=== PATIENT | female | born 1965 | race Caucasian/White ===

== ENCOUNTER 2018-06-07 13:55 | Observation (INO) | payer BC, SELFPAY ==
[2018-06-07] VITALS (9 sets, daily range): BP systolic 108–125; BP diastolic 58–70; PULSE 56–78; RESP 15–18; TEMP 36.5–36.7; O2SAT 95–99; BMI 26.4; BMI 25.8
[2018-06-07] MEDS: Aspirin 81 MG TAB.CHEW 324 MG PO (14:09)
[2018-06-07 14:20] LABS: Absolute Lymphocyte Count 1.76 X10^3/ul (0.83-4.51); Absolute Neutrophil Count 2.6 X10^3/uL (2.0-7.7); Basophil# 0.06 X10^3/uL; Basophil% 1.2 % (0-1); Eosinophils% 4.1 % (0-5); Hematocrit 34.9 % (37-47); Hemoglobin 11.8 g/dl (12.0-15.0); Lymphocyte # 1.76 X10^3/ul (4.0); Lymphocyte % 35.9 % (19-41); Mean Corp Hgb Conc 33.8 g/gl (32-36); Mean Corpuscular Hgb 29.9 pg (27.0-32.0); Mean Corpuscular Volume 88.4 fL (81-99); Mean Platelet Vol. 10.8 fl (6.2-12.0); Monocyte# 0.24 X10^3/uL; Monocyte% 4.9 % (0-10); Neutrophil # 2.64 X10^3/uL (2.7-7.7); Neutrophil % 53.9 % (47-70); Platelet Count 263 K/mm3 (150-450); RBC Distribution Width CV 12.6 % (11.6-14.6); RBC Distribution Width SD 40.5 fl (35.1-43.9); Red Blood Count 3.95 M/mm3 (4.2-5.4); White Blood Count 4.9 K/mm3 (4.4-11.0)
[2018-06-07 14:32] LABS: Anion Gap 8 (5-15); BUN 13 mg/dL (7-18); BUN/Creat Ratio 17.1 RATIO (10-20); Calcium,Total 8.9 mg/dL (8.5-10.1); Chloride 110 mmol/L (98-107); Creatinine, Serum 0.76 mg/dL (0.55-1.02); EST Glomerular Filtration Rate 84 mL/min (>60); Est Glom Filt Rate - Afr Amer 102 mL/min (>60); Estimated Creatinine Clearance 74.77 ml/min; Glucose 118 mg/dL (74-106); Potassium 3.9 mmol/L (3.5-5.1); Sodium Level 142 mmol/L (136-145)
[2018-06-07 14:34] LABS: POSITIVE COUNT NO; POSITIVE DIFFERENTIAL NO; POSITIVE MORPHOLOGY NO
--- NOTE | 2018-06-07 15:14 | ED.VISSUMM ---
- ER Visit Summary Date of Service: 06/07/18 Chief Complaint: Chest pain History of Present Illness: The patient is a 52 F presenting for evaluation secondary chest pain. Patient reports that today she was at rest and she had a sudden onset of substernal chest pain. She states that initially was a stabbing feeling in her back, now as a heaviness in her chest. Patient states that it was associated with diaphoresis and shortness of breath. Patient states that does not have any sort of exacerbating relieving factors. About a week and a half ago she had a similar presentation that she brushed off. Patient is a non-smoker, but has a family history of premature cardiac disease. No diabetes hypertension high cholesterol or smoking. She denies any DVT or PE risk factors. She denies any dissection or aneurysm risk factors. Physical Examination: Vital signs are within normal limits, patient is afebrile. General: Patient is well-nourished well-developed and in no acute distress. Head: Normocephalic, atraumatic Eyes: Pupils equal round and reactive bilaterally, extra occular motion intact bialterally ENT: Moist mucous membranes Neck: Supple, no lymphadenopathy, no JVD, no meningismus CVS: Heart regular rate and rhythm, no murmurs, rubs or gallops, radial pulses 2+ bilaterally Resp: Respirations nondistressed, lung sounds clear bilaterally Abdomen: Soft, nontender, nondistended, no palpable masses, normal bowel sounds Back: Nontender Extremities: Nontender, atraumatic, active full range of motion, no peripheral edema Skin: warm, no rashes, no petechia Neuro: Alert and oriented x 4, CN 2-12 intact, no lateralizing neurological defecits Psyc: Normal affect Test Results: Sinus rhythm [address] segments normal T waves. CBC chemistry troponin unremarkable. PA and lateral chest x-ray shows no evidence of mediastinal widening, normal cardiac size, no evidence of acute cardio pulmonary pathology. Emergency Department Course and Treatment: Patient presented for evaluation secondary chest pain. Workup was found to be negative as noted above. Patient was given aspirin and a single nitroglycerin and had resolution of her pain. Patient's heart score is a 4 making her moderate risk of believe she requires admission I discussed this with hospitalist Disposition: Admission Impression: 1. Chest pain This note was generated with cottonTracksation software. It may contain incorrect words, spelling, and punctuation that were not noted in review of the chart prior to signing ED Disposition - Plan for ED Patient: Disposition: Acute Care Hospital [facility] Chief Complaint: Chest Pain
--- NOTE | 2018-06-07 15:18 | ED.DCSUM_ITS ---
- ER Visit Summary Date of Service: 06/07/18 Chief Complaint: Chest pain History of Present Illness: The patient is a 52 F presenting for evaluation secondary chest pain. Patient reports that today she was at rest and she had a sudden onset of substernal chest pain. She states that initially was a stabbing feeling in her back, now as a heaviness in her chest. Patient states that it was associated with diaphoresis and shortness of breath. Patient states that does not have any sort of exacerbating relieving factors. About a week and a half ago she had a similar presentation that she brushed off. Patient is a non-smoker, but has a family history of premature cardiac disease. No diabetes hypertension high cholesterol or smoking. She denies any DVT or PE risk factors. She denies any dissection or aneurysm risk factors. Physical Examination: Vital signs are within normal limits, patient is afebrile. General: Patient is well-nourished well-developed and in no acute distress. Head: Normocephalic, atraumatic Eyes: Pupils equal round and reactive bilaterally, extra occular motion intact bialterally ENT: Moist mucous membranes Neck: Supple, no lymphadenopathy, no JVD, no meningismus CVS: Heart regular rate and rhythm, no murmurs, rubs or gallops, radial pulses 2 + bilaterally Resp: Respirations nondistressed, lung sounds clear bilaterally Abdomen: Soft, nontender, nondistended, no palpable masses, normal bowel sounds Back: Nontender Extremities: Nontender, atraumatic, active full range of motion, no peripheral edema Skin: warm, no rashes, no petechia Neuro: Alert and oriented x 4, CN 2-12 intact, no lateralizing neurological defecits Psyc: Normal affect Test Results: Sinus rhythm [address] segments normal T waves. CBC chemistry troponin unremarkable. PA and lateral chest x-ray shows no evidence of mediastinal widening, normal cardiac size, no evidence of acute cardio pulmonary pathology. Emergency Department Course and Treatment: Patient presented for evaluation secondary chest pain. Workup was found to be negative as noted above. Patient was given aspirin and a single nitroglycerin and had resolution of her pain. Patient's heart score is a 4 making her moderate risk of believe she requires admission I discussed this with hospitalist Disposition: Admission Impression: 1. Chest pain This note was generated with RIGIDation software. It may contain incorrect words, spelling, and punctuation that were not noted in review of the chart prior to signing ED Disposition - Plan for ED Patient: Disposition: Acute Care Hospital [facility] Chief Complaint: Chest Pain
--- NOTE | 2018-06-07 15:35 | PCM.HP.STD ---
Problem List (1) GERD (gastroesophageal reflux disease) Status: Chronic (2) History of bilateral breast implants Status: Chronic Comment: Z98.82 (3) Personal history of breast cancer Status: Chronic Comment: Z85.3 personal history of left breast cancer History of Present Illness Date of Admission: 06/07/18 Chief Complaint: Chest pain. The patient is a 52 year old F with past medical history as mentioned above presented to the medicine because of chest pain. Her symptoms started around 2 hours before she arrived to the ER with chest pain, started when she was sitting, started in the upper back, went to the anterior chest on the middle, pressure-like pain, 6 out of 10 in severity, not radiating, associated with shortness of breath and sweating, aggravated by movement and relieved with nitroglycerin after she arrived to the emergency room. She mentioned that she had similar episode of chest pain around 1 week ago. At this time, she feels better after she received nitroglycerin. In the emergency department, her vital signs are stable. Routine blood work was unremarkable. EKG revealed normal sinus rhythm without evidence of acute ischemic changes. Troponin is negative. Chest x-ray showed no acute findings. She is being admitted for chest pain for evaluation. 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) Z90.13 Family history of breast cancer (Chronic) Z80.3 Personal history of breast cancer (Chronic) Z85.3 personal history of left breast cancer Allergies minocycline Allergy (Severe, Verified 06/07/18 13:56) Shortness of breath Sulfa (Sulfonamide Antibiotics) Allergy (Severe, Verified 06/07/18 13:56) Anaphylaxis oxaprozin [From Daypro] Adverse Reaction (Intermediate, Verified 06/07/18 13:56) Diarrhea tamoxifen [Tamoxifen] Adverse Reaction (Intermediate, Verified 06/07/18 13:56) Nausea/Vom/Diarrhea venlafaxine Adverse Reaction (Intermediate, Verified 06/07/18 13:56) Nausea adhesive Adverse Reaction (Mild, Verified 06/07/18 13:56) Rash latex Adverse Reaction (Mild, Verified 06/07/18 13:56) Rash acetaminophen [From Vicodin] Adverse Reaction (Verified 06/07/18 13:56) Nausea/Vom/Diarrhea hydrocodone [From Vicodin] Adverse Reaction (Verified 06/07/18 13:56) Nausea/Vom/Diarrhea Tide Laundry Detergent Allergy (Severe, Uncoded 06/07/18 13:56) Rash Home Medications: Ambulatory Orders Medication Instructions Recorded Omeprazole [Prilosec] 10 mg PO Q4H PRN PRN 04/29/17 Surgical History: hysterectomy, - - Bilateral mastectomy, breast implants. 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 Denies: Edema, Heaviness, Light Headedness, Orthopnea, Paroxysmal Noc. Dyspnea, Syncope Respiratory: Reports: Shortness of Breath. Denies: Cough, Hemoptysis, Pleuritic Pain, Sputum production, Wheezing Gastrointestinal: Denies: Abdominal Pain, Constipation, Diarrhea, Nausea, Vomiting Genitourinary: Denies: Dysuria, Frequency, Hematuria Musculoskeletal: Denies: Arm Pain, Back Pain, Foot Pain Skin: Denies: Dryness, Rash Neurological: Denies: Balance problems, Double vision, Change in Speech, Slurred speech, Confusion, Headaches, Incoordination, Numbness Psychiatric: Denies: Anxiety, Depression Endocrine: Denies: Change in Body Habitus, Polydipsia VTE Information - Inpt Only VTE Present on Admission: No VTE Mechan Device Prophylaxis: None VTE Pharm Prophylaxis ordered?: No - Physical Exam General: Alert, Oriented x3, Cooperative, No apparent distress HEENT: Atraumatic, PERRLA, EOMI, Normocephalic Oral: Moist Mucosa, No Gingival or Mucosal Lesions/ Ulcerations Neck: Supple, No JVD, Negative Carotid Bruits, Trachea Midline, Thyroid Normal Size and Texture Lungs: Clear to auscultation, Normal air movement, No rhonchi, No wheeze, No rales Cardiovascular: Regular rate, Regular Rhythm, Normal S1, Normal S2, No murmurs Abdomen: Bowel Sounds Present, Soft, Non Tender, Non-Distended, No Hepato-splenomegaly Extremities: No clubbing, No cyanosis, No edema Skin: No rashes, No breakdown Lymphatic: No Cervical, Supraclavicular, or Inguinal Adenopathy Neurological: Cranial nerves II-XII grossly intact, Motor Exam 5/5 strength throughout Psych/Mental Status: Normal Affect, Appropriate, Alert and oriented to time, place, person, mood and affect Vital Signs Temp Pulse Resp BP Pulse Ox 97.7 F L 78 18 108/67 95 06/07/18 13:56 06/07/18 15:06 06/07/18 15:06 06/07/18 15:06 06/07/18 15:06 Oxygen Flow Rate (L/min) 2 Oxygen Delivery Method Nasal Cannula Weight: 154 lb 5.177 oz Body Mass Index (BMI) 26.4 Laboratory Tests Past 24 Hrs 06/07/18 06/07/18 14:00 14:00 WBC 4.9 RBC 3.95 L Hgb 11.8 L Hct 34.9 L MCV 88.4 MCH 29.9 MCHC 33.8 RDW 12.6 RDW Differential 40.5 Plt Count 263 MPV 10.8 Immature Gran % (Auto) 0.000 Neut % (Auto) 53.9 Lymph % (Auto) 35.9 Quay % (Auto) 4.9 Eos % (Auto) 4.1 Baso % (Auto) 1.2 H Absolute Neuts (auto) 2.6 Absolute Lymphs (auto) 1.76 Total Counted Not Reportable Sodium 142 Potassium 3.9 Chloride 110 H Carbon Dioxide 24.0 Anion Gap 8 BUN 13 Creatinine 0.76 Estim Creat Clear Calc 74.77 Est GFR (MDRD) Af Amer 102 Est GFR (MDRD) Non-Af 84 BUN/Creatinine Ratio 17.1 Glucose 118 H Calcium 8.9 Troponin I < 0.015 Clinical Impression(s) from Imaging Studies Chest X-Ray 06/07/18 14:03 IMPRESSION: Normal x-ray examination of the chest. Electronically Signed: Choco GaoDO shara at 14:24 EDT Tel , Service support , Assessment/Plan This is a 52 years old female patient presented to the emergency room because of chest pain and she is being admitted for evaluation. #1 chest pain: According to patient's description, it is atypical chest pain. Risk factors are age and significant premature family history of CAD. She mentioned that her mother at age 62 and she had her first heart attack in her 40s. Her EKG reveals no acute ischemic changes. First troponin is negative. Chest x-ray showed no acute findings. Vital signs are stable. She is not hypoxic or tachycardic. Plan: Admit to ICU for observation, cardiac monitoring, serial cardiac enzymes, sublingual nitro glycerin as needed for pain, IV Zofran as needed, nuclear stress test if cardiac enzymes are negative, start Protonix as below. #2 history of breast cancer: Status post bilateral mastectomy and tamoxifen therapy, status post reconstructive surgery and breast implants. Patient completed 5 years of tamoxifen therapy and she has been in remission. Stable. #3 GERD: Start Protonix. Patient has been on omeprazole just as needed at home. #4 DVT prophylaxis: Low risk patient, no prophylaxis indicated. This note was generated with SpinVoxation software. It may contain incorrect words, spelling, and punctuation that were not noted in checking the note before signing. Code Visit OBSV E&M: 46366 Initial observation care L3
[2018-06-08] VITALS (9 sets, daily range): BP systolic 106–118; BP diastolic 60–69; PULSE 59–91; RESP 15–18; TEMP 36.6–36.8; O2SAT 96–98
[2018-06-08 07:27] LABS: Cholesterol 187 mg/dL (200); High Density Lipoprotein 52 mg/dL; Triglycerides 108 mg/dL; Very Low Density Lipoprotein 22 mg/dL (5-40)
--- NOTE | 2018-06-08 08:34 | PCM.PROGNOTE ---
Subjective: Chief complaint: Follow-up after admission for chest pain for evaluation. Patient seen and examined. No acute events overnight. Today, she has no more chest pain and denies shortness of breath. Her vital signs are stable. - Physical Exam General: Alert, Oriented x3, Cooperative, No apparent distress HEENT: Atraumatic, PERRLA, EOMI, Normocephalic Oral: Moist Mucosa, No Gingival or Mucosal Lesions/ Ulcerations Neck: Supple, No JVD, Negative Carotid Bruits, Trachea Midline, Thyroid Normal Size and Texture Lungs: Clear to auscultation, Normal air movement, No rhonchi, No wheeze, No rales Cardiovascular: Regular rate, Regular Rhythm, Normal S1, Normal S2, No murmurs Abdomen: Bowel Sounds Present, Soft, Non Tender, Non-Distended, No Hepato-splenomegaly Extremities: No clubbing, No cyanosis, No edema Skin: No rashes, No breakdown Lymphatic: No Cervical, Supraclavicular, or Inguinal Adenopathy Neurological: Cranial nerves II-XII grossly intact, Motor Exam 5/5 strength throughout Psych/Mental Status: Normal Affect, Appropriate, Alert and oriented to time, place, person, mood and affect Vital Signs Temp Pulse Resp BP Pulse Ox 98.3 F 63 15 114/60 98 06/08/18 04:15 06/08/18 04:15 06/08/18 04:15 06/08/18 04:15 06/08/18 04:15 Oxygen Delivery Method Room Air Weight: 150 lb 9.211 oz Body Mass Index (BMI) 25.8 Intake and Output for Last 24 Hours 06/06/18 06/07/18 06/08/18 23:59 23:59 23:59 Intake Total 240 / 240 720 / 720 Balance 240 / 240 720 / 720 Laboratory Tests Past 24 Hrs 06/07/18 06/07/18 06/08/18 17:20 20:10 05:55 Troponin I < 0.015 < 0.015 Triglycerides 108 Cholesterol 187 LDL Cholesterol 113 VLDL Cholesterol 22 HDL Cholesterol 52 Medical Necessity - Tobacco Use Smoking Status: Never smoker Assessment/Plan This is a 52 years old female patient presented to the emergency room because of chest pain and she is being admitted for evaluation. #1 chest pain:, She has no more chest pain, denies shortness of breath. Repeat EKG revealed sinus bradycardia, no acute ischemic changes. Troponin is negative ?3. Her vital signs are stable. Lipid profile revealed total cholesterol of 187, LDL cholesterol of 115 and HDL cholesterol 52. Plan for stress test tomorrow morning. #2 history of breast cancer: Status post bilateral mastectomy and tamoxifen therapy, status post reconstructive surgery and breast implants. Patient completed 5 years of tamoxifen therapy and she has been in remission. Stable. #3 GERD: Continue Protonix. Patient has been on omeprazole just as needed at home. #4 DVT prophylaxis: Low risk patient, no prophylaxis indicated. This note was generated with [employer] dictation software. It may contain incorrect words, spelling, and punctuation that were not noted in checking the note before signing. Code Visit OBSV E&M: 04644 Subsequent observation care L2
[2018-06-08] MEDS: Pantoprazole Sodium 40 MG Tablet PO (09:33)
[2018-06-08] MEDS: Aspirin E.C. 81 MG Tablet PO (09:34)
[2018-06-09] VITALS (7 sets, daily range): BP systolic 110–123; BP diastolic 58–65; PULSE 57–78; RESP 15–16; TEMP 36.6–36.9; O2SAT 96–98
[2018-06-09 05:25] LABS: Hematocrit 34.2 % (37-47); Hemoglobin 11.7 g/dl (12.0-15.0); Mean Corp Hgb Conc 34.2 g/gl (32-36); Mean Corpuscular Hgb 30.7 pg (27.0-32.0); Mean Corpuscular Volume 89.8 fL (81-99); Mean Platelet Vol. 11.2 fl (6.2-12.0); Platelet Count 238 K/mm3 (150-450); RBC Distribution Width CV 12.4 % (11.6-14.6); RBC Distribution Width SD 39.8 fl (35.1-43.9); Red Blood Count 3.81 M/mm3 (4.2-5.4); White Blood Count 5.5 K/mm3 (4.4-11.0)
[2018-06-09 05:48] LABS: Anion Gap 11 (5-15); BUN 18 mg/dL (7-18); Calcium,Total 9.2 mg/dL (8.5-10.1); Chloride 108 mmol/L (98-107); Creatinine, Serum 0.69 mg/dL (0.55-1.02); EST Glomerular Filtration Rate 94 mL/min (>60); Est Glom Filt Rate - Afr Amer 114 mL/min (>60); Estimated Creatinine Clearance 82.36 ml/min; Glucose 93 mg/dL (74-106); Potassium 4.2 mmol/L (3.5-5.1); Sodium Level 143 mmol/L (136-145)
[2018-06-09 05:52] LABS: Prothrombin Time (Protime)PT. 13.4 SECONDS (11.7-14.9)
[2018-06-09 05:53] LABS: Partial Thromboplast Time 29.2 Seconds (24.1-36.2)
[2018-06-09 05:58] LABS: Scan Indicated on CBC? Y/N NO
--- NOTE | 2018-06-09 09:07 | STRESSREP ---
Stress Test Report Exercise myocardial perfusion stress test. 52-year-old lady with a history of chest pain. Stress protocol: Resting EKG demonstrates normal sinus rhythm with a rate of 63 bpm normal intervals and noted resting blood pressure is 112/60 mmHg. The patient exercised according to regular Davon protocol for total duration of 7 minutes. The maximum heart rate attained was 164 bpm which was 97% of maximum predicted heart rate the maximum workload was 8.5 metabolic equivalents. The patient maintained sinus rhythm throughout the recording. At rest there were no ST or T-wave changes noted suggest ischemia peak exercise upsloping ST changes were noted with no meet the criteria for ischemia. No clinical angina was noted the test was terminated due to leg fatigue. The resting blood pressure is 112/60 mmHg with a peak blood pressure 152/76 mmHg rate pressure product was 22,800. Myocardial perfusion protocol. 11.2 mCi of technetium 99m sestamibi was injected at rest. The patient exercised according to regular Davon protocol for total duration of 7 minutes. At peak exercise 32.9 mCi of technetium 99m sestamibi was injected stress images were obtained stress and rest images were reconstructed and compared in the short axis vertical long and horizontal long axis. Gated images were also obtained pre- Perfusion SPECT analysis: Review of the stress images demonstrate normal uptake of tracer noted in all areas of the myocardium. The resting images similarly demonstrate normal uptake of tracer noted in all areas of the myocardium. No areas of reversibility are noted suggest ischemia and no previous infarct is noted. Gated SPECT analysis: The gated ejection fraction is noted to be 86%. Conclusion: Exercise myocardial perfusion stress test with no evidence of ischemia noted at a moderate workload. Good functional capacity. Preserved ejection fraction.
[2018-06-09] MEDS: Aspirin E.C. 81 MG Tablet PO (09:39)
[2018-06-09] MEDS: Pantoprazole Sodium 40 MG Tablet PO (09:39)
--- NOTE | 2018-06-09 13:23 | PCM.DC ---
- Discharge Diagnoses Current Active Problems: Current Active and Chronic Problems GERD (gastroesophageal reflux disease) (Chronic) You will use the following diet at home:: Regular Your food should be the consistency of: Regular Your liquids should be the consistency of: Regular/Thin Discharge Activity: Return to Normal Activity Call your doctor if you observe: Shortness of breath, Dizziness, Fainting spells, Chest pain, Increased palpitations (irregular heartbeat) Allergies/Adverse Reactions: Allergies minocycline Allergy (Severe, Verified 06/07/18 13:56) Shortness of breath Sulfa (Sulfonamide Antibiotics) Allergy (Severe, Verified 06/07/18 13:56) Anaphylaxis oxaprozin [From Daypro] Adverse Reaction (Intermediate, Verified 06/07/18 13:56) Diarrhea tamoxifen [Tamoxifen] Adverse Reaction (Intermediate, Verified 06/07/18 13:56) Nausea/Vom/Diarrhea venlafaxine Adverse Reaction (Intermediate, Verified 06/07/18 13:56) Nausea adhesive Adverse Reaction (Mild, Verified 06/07/18 13:56) Rash latex Adverse Reaction (Mild, Verified 06/07/18 13:56) Rash acetaminophen [From Vicodin] Adverse Reaction (Verified 06/07/18 13:56) Nausea/Vom/Diarrhea hydrocodone [From Vicodin] Adverse Reaction (Verified 06/07/18 13:56) Nausea/Vom/Diarrhea Tide Laundry Detergent Allergy (Severe, Uncoded 06/07/18 13:56) Rash Medications to take at Discharge Omeprazole [Prilosec] 10 mg PO Q4H PRN PRN 04/29/17 Aspirin E.C. [Ecotrin] 81 mg PO DAILY@0800 tablet 06/09/18 Primary Care Physician: Oma Palacio CODING EDUCATOR-C [Primary Care Provider] - Please follow up with your Primary Care Physician in: in 3-5 days Test Results: Test results from this visit will be discussed in further detail at your follow-up appointment, if applicable.
--- NOTE | 2018-06-09 13:25 | PCM.DC.SUM ---
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 History of bilateral breast implants (Chronic) Z98.82 Pain due to internal prosthetic devices, implants and grafts, not elsewhere classified, sequela (Chronic) T85.84xS painful bilateral breast implants with capsular contracture 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 The resting images similarly demonstrate normal uptake of tracer noted in all areas of the myocardium. No areas of reversibility are noted suggest ischemia and no previous infarct is noted. Gated SPECT analysis: The gated ejection fraction is noted to be 86%. Conclusion: Exercise myocardial perfusion stress test with no evidence of ischemia noted at a moderate workload. Good functional capacity. Preserved ejection fraction. Summary of Care Provided: HPI: The patient is a 52 year old F with past medical history as mentioned above presented to the medicine because of chest pain. Her symptoms started around 2 hours before she arrived to the ER with chest pain, started when she was sitting, started in the upper back, went to the anterior chest on the middle, pressure-like pain, 6 out of 10 in severity, not radiating, associated with shortness of breath and sweating, aggravated by movement and relieved with nitroglycerin after she arrived to the emergency room. She mentioned that she had similar episode of chest pain around 1 week ago. At this time, she feels better after she received nitroglycerin. In the emergency department, her vital signs are stable. Routine blood work was unremarkable. EKG revealed normal sinus rhythm without evidence of acute ischemic changes. Troponin is negative. Chest x-ray showed no acute findings. She is being admitted for chest pain for evaluation. Vital Signs - 24 hr Temp Pulse Resp BP Pulse Ox 06/09/18 11:07 75 06/09/18 09:55 97 06/09/18 09:30 97.9 F 63 16 123/65 H 96 06/09/18 06:12 73 06/09/18 03:30 98.4 F 60 15 110/58 L 98 06/09/18 03:00 57 L 06/08/18 21:36 88 06/08/18 21:30 98.3 F 69 15 106/66 97 06/08/18 19:00 70 06/08/18 15:30 97.8 F 78 18 118/69 96 06/08/18 15:04 91 General: Alert, Oriented x3, Cooperative, No apparent distress HEENT: Atraumatic, EOMI, Normocephalic Oral: Moist Mucosa Neck: Supple, No JVD Lungs: Clear to auscultation, Normal air movement, No rhonchi, No wheeze, No rales Cardiovascular: Regular rate, Regular Rhythm, Normal S1, Normal S2, No murmurs Abdomen: Soft, Non Tender, Non-Distended, No Hepato-splenomegaly Extremities: No edema, Capillary Refill Less than 3 Seconds Skin: No rashes, No breakdown Psych/Mental Status: Normal Affect, Appropriate Hospital Course: 1. Chest pain/SOB - She had serial troponins drawn which were all negative and her EKG was non-ischemic. She did have a stress test which was also normal. Her ASCVD risk is only 1.4% so she does not qualify for a statin. She can at least stay on an aspirin since this is the second episode of chest pain in so many days. She does not need to be on any other medications. She is to f/u with her PCP in 3-5 days. 2. GERD - Stable, c/w her PPI on discharge Discharge Activity: Return to Normal Activity Call your doctor if you observe: Shortness of breath, Dizziness, Fainting spells, Chest pain, Increased palpitations (irregular heartbeat) Home Medications: Medications to take at Discharge Omeprazole [Prilosec] 10 mg PO Q4H PRN PRN 04/29/17 Aspirin E.C. [Ecotrin] 81 mg PO DAILY@0800 tablet 06/09/18 Primary Care Physician: Hakeem,Oma, CHAIN SAW DRIVER-C [Primary Care Provider] - Please follow up with your Primary Care Physician in: in 3-5 days Disposition: Home Minutes spent on discharge:: 35 Patient Condition:: Good Medical Necessity - Tobacco Use Smoking Status: Never smoker Meaningful Use Info Meaningful Use Diagnoses (Choose all that apply): None applicable Code Visit Inpatient E&M: 93402 Disch Hosp
== END 2018-06-09 13:23 | disposition home or self-care (01) ==
LOC: ED 15:30 → PCU 15:37
PROVIDERS: Admitting Provider Hospitalist; Emergency Provider Emergency Medicine; Family Provider Nurse Practitioner Primary Care; PCP Nurse Practitioner Primary Care; Visit Provider Family Medicine
DX: R07.89 Other chest pain (principal); R06.02 Shortness of breath; K21.9 Gastro-esophageal reflux disease without esophagitis; Z86.14 Personal history of Methicillin resistant Staphylococcus aureus infection; Z85.3 Personal history of malignant neoplasm of breast; Z82.49 Family history of ischemic heart disease and other diseases of the circulatory system
CPT/HCPCS: 36415; 71046; 78452; 80048; 80061; 84484; 85025; 85027; 85610; 85730; 93005; 93017; 99218; 99283; A9500; A4216; G0378

== ENCOUNTER → 2018-08-04 16:03 | Outpatient (CLI) | payer BC, SELFPAY ==
--- NOTE | 2018-08-04 16:50 | RAD_ITS ---
STUDY: X-RAY CHEST REASON FOR EXAM: Female, 53 years old. History of breast cancers 9 years ago breast implant status TECHNIQUE: Frontal and lateral views of the chest. COMPARISON: 06/07/2018 FINDINGS: Chronic appearing increased interstitial lung markings. Metal clips in the upper abdomen suggesting prior reconstructive breast surgery. There are bilateral breast implants. There is no demonstrated pleural abnormality. Normal heart size. Normal mediastinum and poly. Normal visualized pulmonary arteries. There is atherosclerotic calcification of the aortic arch with tortuosity. There are diffuse degenerative changes of the visualized thoracic spine. There is degenerative osteoarthritis of the bilateral shoulders. There is no demonstrated abnormality of the visualized soft tissue structures of the upper abdomen. RAD/Chest PA and Lateral IMPRESSION: There are no acute findings. Electronically Signed: Dennis Can MD at 20:30 EDT , Service support ,
[2018-08-04 17:06] LABS: Absolute Lymphocyte Count 2.15 X10^3/ul (0.83-4.51); Basophil# 0.04 X10^3/uL; Basophil% 0.7 % (0-1); Eosinophil# 0.26 X10^3/uL; Eosinophils% 4.5 % (0-5); Hematocrit 32.2 % (37-47); Hemoglobin 10.9 g/dl (12.0-15.0); Lymphocyte # 2.15 X10^3/ul (4.0); Lymphocyte % 37.3 % (19-41); Mean Corp Hgb Conc 33.9 g/gl (32-36); Mean Corpuscular Hgb 29.9 pg (27.0-32.0); Mean Corpuscular Volume 88.2 fL (81-99); Mean Platelet Vol. 10.8 fl (6.2-12.0); Monocyte# 0.27 X10^3/uL; Monocyte% 4.7 % (0-10); Neutrophil # 3.04 X10^3/uL (2.7-7.7); Neutrophil % 52.8 % (47-70); Platelet Count 254 K/mm3 (150-450); RBC Distribution Width CV 12.6 % (11.6-14.6); RBC Distribution Width SD 40.7 fl (35.1-43.9); Red Blood Count 3.65 M/mm3 (4.2-5.4); White Blood Count 5.8 K/mm3 (4.4-11.0)
[2018-08-04 17:24] LABS: POSITIVE COUNT NO; POSITIVE DIFFERENTIAL NO; POSITIVE MORPHOLOGY NO
[2018-08-04 18:29] LABS: Albumin, Serum 3.6 g/dL (3.2-5.0); BUN 14 mg/dL (7-18); BUN/Creat Ratio 19.2 RATIO (10-20); Creatinine, Serum 0.73 mg/dL (0.55-1.02); EST Glomerular Filtration Rate 89 mL/min (>60); Est Glom Filt Rate - Afr Amer 107 mL/min (>60); Globulin 3.2 g/dL (2.2-4.2); Glucose 85 mg/dL (74-106); Protein, Total 6.8 g/dL (6.4-8.2)
[2018-08-04 18:30] LABS: ALB/GLOB Ratio 1.1 RATIO (0.9-2.4); AST(SGOT) 18 U/L (15-37); Alanine Aminotransfer ALT/SGPT 26 U/L (13-56); Alkaline Phosphatase 89 U/L (45-117); Anion Gap 9 (5-15); Calcium,Total 8.9 mg/dL (8.5-10.1); Chloride 107 mmol/L (98-107); Potassium 3.5 mmol/L (3.5-5.1); Sodium Level 141 mmol/L (136-145)
[2018-08-05 00:30] LABS: Xtra Tube EP Lab EXTRA TUBE
== END ==
PROVIDERS: Family Provider Nurse Practitioner Primary Care; PCP Nurse Practitioner Primary Care; Visit Provider Internal Medicine Medical Oncology
DX: Z85.3 Personal history of malignant neoplasm of breast (principal); Z98.82 Breast implant status
CPT/HCPCS: 36415; 71046; 80053; 82274; 85025

== ENCOUNTER → 2018-10-10 20:33 | Outpatient (CLI) | payer BC, SELFPAY | LOC: SL 20:34 | PROVIDERS: Family Provider Nurse Practitioner Primary Care; PCP Nurse Practitioner Primary Care; Referring Provider Nurse Practitioner Family; Visit Provider Nurse Practitioner Family | DX: G47.30 Sleep apnea, unspecified (principal); R06.83 Snoring; R53.83 Other fatigue | CPT/HCPCS: 95810 ==

== ENCOUNTER → 2018-10-24 09:18 | Outpatient (CLI) | payer BC, SELFPAY ==
--- NOTE | 2018-10-24 09:33 | RAD_ITS ---
STUDY: X-RAY - ESOPHAGUS (BARIUM SWALLOW) WITH FLUOROSCOPY REASON FOR EXAM: Female, 53 years old. Dysphagia. TECHNIQUE: 14 view(s) of the esophagus were obtained following swallowing of barium. FLUOROSCOPY TIME (if supplied): (0:27) minutes/seconds COMPARISON: None. FINDINGS: There is no demonstrated esophageal foreign body. There is no demonstrated stricture or mucosal abnormality. There is a small hiatal hernia of the fundus of the stomach. The patient ingested a 12 mm tablet and barium without any difficulty. Normal visualized aortic arch and descending thoracic aorta. Normal visualized pulmonary parenchyma. Normal visualized osseous structures of the thorax. RAD/Esophagus Only IMPRESSION: Normal plain film x-ray examination (barium swallow) of the esophagus. Electronically Signed: Juan Antonio Nelson MD at 10:21 EST Tel [phone], Service support ,
== END ==
PROVIDERS: Family Provider Nurse Practitioner Primary Care; PCP Nurse Practitioner Primary Care; Referring Provider Internal Medicine Gastroenterology; Visit Provider Internal Medicine Gastroenterology
DX: R13.10 Dysphagia, unspecified (principal)
CPT/HCPCS: 74220

== ENCOUNTER 2018-11-23 18:05 | Emergency (ER) | payer BC, SELFPAY ==
[2018-11-13 15:07] VITALS: BMI 26.5
[2018-11-23 18:05] VITALS: BP 120/80; PULSE 81; RESP 14; TEMP 36.7; O2SAT 97; BMI 26.9
[2018-11-23 19:51] LABS: Mucous, Urine 0 SEEN /hpf (<or=2+)
[2018-11-23 19:56] LABS: Color, Urine Yellow (Yellow); Glucose, Dipstick Normal (Normal); Ketone-Dipstick Negative (Negative); Leukocyte Esterase-Dipstick 25 /ul (Negative); Nitrite-Dipstick Negative (Negative); Occult Blood-Urine Negative /ul (Negative); Protein-Dipstick Negative (Negative); Specific Gravity, Urine 1.015 (1.002-1.030); Urine Bilirubin Dipstick Negative (Negative); Urine Clarity Sl. Cloudy (Clear); Urine Urobilinogen Normal (Normal)
[2018-11-23 19:59] LABS: Bacteria RARE /hpf (None Seen); Red Blood Cells-Urine 0-5 SEEN /hpf (0-5); Squamous Epithelial Cells - UA 0-5 SEEN /hpf (5-10); White Blood Cells 0-5 SEEN /hpf (0-5)
[2018-11-23 20:46] VITALS: BP 108/67; PULSE 60; RESP 16; O2SAT 95
--- NOTE | 2018-11-23 21:11 | ED.DCSUM_ITS ---
- ER Visit Summary Date of Service: 11/23/18 Chief Complaint: Back pain History of Present Illness: The patient is a 53 F with back pain for a week. She has strong smell to her urine and was concerned for any infection. No fevers. No abdominal pain. No trauma. No urinary incontinence. No GI symptoms. Physical Examination: Afebrile and vital signs unremarkable. Back is tender in the lower lumbar region. No CVA tenderness. Abdomen soft and nontender. Skin appears normal. Test Results: UA unremarkable. Emergency Department Course and Treatment: Patient had a normal UA. This is likely myofascial pain. Treated with anti-inflammatories and Flexeril. Follow- up with primary care. Treatment Plan: As above Disposition: Discharge Impression: 1. Lumbar back pain This note was generated with [employer] dictation software. It may contain incorrect words, spelling, and punctuation that were not noted in review of the chart prior to signing ED Disposition - Plan for ED Patient: Referrals: Oma Palacio, VALERY-C [Primary Care Provider] -
--- NOTE | 2018-11-23 21:11 | ED.DEP ---
ED Disposition - Plan for ED Patient: Instructions: ED Sprain Strain Lumbar Prescriptions: Naproxen [Naprosyn] 500 mg PO BID #14 tab Cyclobenzaprine [Flexeril] 10 mg PO TID PRN #20 tab PRN Reason: Muscle Spasm Referrals: Oma Palacio, ENVIRONMENTAL ASSISTANT-C [Primary Care Provider] -
[2018-11-23 21:20] VITALS: BP 113/71; PULSE 63; RESP 16; O2SAT 96
[2018-11-23] MEDS: Naproxen 500 MG Tablet PO (21:20)
== END 2018-11-23 21:21 | disposition home or self-care (01) ==
PROVIDERS: Emergency Provider Emergency Medicine; Family Provider Nurse Practitioner Primary Care; PCP Nurse Practitioner Primary Care
DX: M54.5 Low back pain (principal); R82.90 Unspecified abnormal findings in urine; R11.0 Nausea; K21.9 Gastro-esophageal reflux disease without esophagitis; Z85.3 Personal history of malignant neoplasm of breast; Z72.0 Tobacco use
CPT/HCPCS: 81001; 99283

== ENCOUNTER → 2018-11-26 17:42 | Outpatient (CLI) | payer BC, SELFPAY ==
[2018-11-13 15:07] VITALS: BMI 26.5
[2018-11-23 18:05] VITALS: BMI 26.9
--- NOTE | 2018-11-26 17:48 | CT_ITS ---
STUDY: CT ABDOMEN AND PELVIS WITH CONTRAST REASON FOR EXAM: Female, 53 years old. Abdominal wall pain RADIATION DOSAGE (If Supplied By Facility): CTDIvol = ( 19.44 ) mGy, DLP = ( 986.66 ) mGycm TECHNIQUE: Transaxial images were obtained from the dome of the diaphragm to the symphysis pubis without oral contrast. 100ML ml of Isovue 250 contrast was administered. Sagittal and coronal images were reconstructed. Individualized dose optimization techniques were used for this CT. COMPARISON: October 29, 2015. FINDINGS: The visualized lung bases are unremarkable. The visualized portions of the heart are within normal limits. Normal liver. Normal gallbladder and extrahepatic biliary system. Normal spleen. Normal pancreas. Normal bilateral adrenal glands. Stable mild fullness of the pelvicalyceal system in the right kidney. Stable 4 mm cyst in the left kidney. Stable hiatal hernia. Normal small intestine. Normal colon. The appendix is nonvisualized. Normal abdominal aorta. Normal inferior vena cava. Normal retroperitoneum. Normal urinary bladder. There are surgical clips of the abdominal wall. Degenerative vertebral changes. CT/Abdomen/Pelvis WITH Contrast IMPRESSION: Stable hiatal hernia. Stable left renal cyst. Stable mild prominence of the right pelvicalyceal system. Electronically Signed: Campbell Geiger DO at 21:33 EST Tel [phone], Service support ,
[2018-11-26 18:00] LABS: CREATININE FINGERSTICK 1.3 mg/dL (0.55-1.02)
== END ==
LOC: CT 17:42
PROVIDERS: Family Provider Nurse Practitioner Primary Care; PCP Nurse Practitioner Primary Care; Referring Provider Surgery; Visit Provider Surgery
DX: R10.9 Unspecified abdominal pain (principal); K43.2 Incisional hernia without obstruction or gangrene; Z85.3 Personal history of malignant neoplasm of breast; Z98.82 Breast implant status; Z86.14 Personal history of Methicillin resistant Staphylococcus aureus infection
CPT/HCPCS: 74177; Q9967

== ENCOUNTER 2018-12-01 22:23 | Emergency (ER) | payer BC, SELFPAY ==
[2018-12-01 22:24] VITALS: BP 150/74; PULSE 90; RESP 16; TEMP 36.7; O2SAT 97; BMI 25.7
--- NOTE | 2018-12-01 22:50 | RAD_ITS ---
STUDY: X-RAY CHEST REASON FOR EXAM: Female, 53 years old. Cough for several days. TECHNIQUE: PA and lateral views of the chest. COMPARISON: 08/04/2018. FINDINGS: There is mild elevation of the medial aspect of the right hemidiaphragm. No focal infiltrate is seen. There is no demonstrated pleural abnormality. Normal size heart. Normal mediastinum and poly. Normal visualized pulmonary arteries. Normal visualized aortic arch and descending thoracic aorta. Normal visualized thoracic spine. Normal visualized ribs, clavicles, and shoulders. There again are surgical clips in the epigastric region and left lower chest. RAD/Chest PA and Lateral IMPRESSION: No active pulmonary disease. Electronically Signed: Maxi Sweeney MD at 23:03 EST Tel , Service support ,
--- NOTE | 2018-12-01 23:14 | ED.DCSUM_ITS ---
- ER Visit Summary Date of Service: 12/01/18 Chief Complaint: Cough History of Present Illness: The patient is a 53 F who presents with cough. She has been off for 3 days. She reports subjective fevers. She complains of congestion rhinorrhea shortness of breath and cough. She complains of headache. She states that her chest is sore from coughing. She complains of sore throat. Physical Examination: Afebrile vitals normal Moist mucous membranes Heart regular rate and rhythm Lungs are clear Abdomen soft Alert Test Results: Two-view chest x-ray shows no active disease. Emergency Department Course and Treatment: Patient clinically well-appearing here. Her history and presentation are consistent with a viral syndrome, bronchitis. Influenza certainly consideration but she is clinically well- appearing without underlying pulmonary disease and is also 3 days out outside of the window for Tamiflu. She is advised on supportive care. She understands return for new or worsening symptoms and was instructed on specific signs and symptoms to monitor for. Treatment Plan: [] Disposition: Discharge Impression: Bronchitis This note was generated with [employer] dictation software. It may contain incorrect words, spelling, and punctuation that were not noted in review of the chart prior to signing ED Disposition - Plan for ED Patient: Referrals: Oma Palacio NP-C [Primary Care Provider] -
--- NOTE | 2018-12-01 23:14 | ED.DEP ---
ED Disposition - Plan for ED Patient: Instructions: Acute Bronchitis Referrals: Oma Palacio, CEREAL MAKER-C [Primary Care Provider] -
--- NOTE | 2018-12-01 23:15 | DCINST.ED_ITS ---
ED Disposition - Plan for ED Patient: Instructions: Acute Bronchitis Referrals: Oma Palacio, ODD BUNDLE WORKER-C [Primary Care Provider] -
[2018-12-01 23:20] VITALS: BP 143/79; PULSE 79; RESP 16; O2SAT 96
--- NOTE | 2018-12-01 23:21 | ED.RN ---
THIS NURSE REVIEWED D/C INSTRUCTIONS WITH PT. PT VERBALIZED UNDERSTANDING OF INSTRUCTIONS. PT DENIES FURTHER NEEDS OR QUESTIONS AT THIS TIME. PT AMBULATES FROM ROOM ON OWN WITHOUT ASSISTANCE FROM STAFF
== END 2018-12-01 23:22 | disposition home or self-care (01) ==
PROVIDERS: Emergency Provider Emergency Medicine; Family Provider Nurse Practitioner Primary Care; PCP Nurse Practitioner Primary Care
DX: J40 Bronchitis, not specified as acute or chronic (principal); K21.9 Gastro-esophageal reflux disease without esophagitis; Z85.3 Personal history of malignant neoplasm of breast
CPT/HCPCS: 71046; 99282

== ENCOUNTER 2018-12-06 18:54 | Emergency (ER) | payer BC, SELFPAY ==
[2018-12-06 18:56] VITALS: BP 117/73; PULSE 87; RESP 18; TEMP 36.4; O2SAT 98; BMI 25.7
--- NOTE | 2018-12-06 19:06 | EKG12_ITS ---
Test Reason : SOB Blood Pressure : / mmHG Vent. Rate : 082 BPM Atrial Rate : 082 BPM P-R Int : 140 ms QRS Dur : 076 ms QT Int : 352 ms P-R-T Axes : 062 062 049 degrees QTc Int : 411 ms Normal sinus rhythm Normal ECG Confirmed by BEATRIZ SNEED, STALIN ([id number]), legal editor JAE JUNG ([id number] on 12/09/2018 4:55:08 PM Referred By: EDGAR Confirmed By:STALIN HENDERSON MD
--- NOTE | 2018-12-06 19:06 | RAD_ITS ---
STUDY: X-RAY CHEST REASON FOR EXAM: Female, 53 years old. Cough, SOB. TECHNIQUE: PA and lateral chest. COMPARISON: 12/01/2018. FINDINGS: The lungs are clear and expanded. There is no demonstrated pleural abnormality. Normal size heart. Normal mediastinum and poly. Normal visualized pulmonary arteries. Normal visualized aortic arch and descending thoracic aorta. Normal visualized thoracic spine. Normal visualized ribs, clavicles, and shoulders. Surgical clips are compatible with prior abdominal surgery. Surgical clips in the left axilla are consistent with axillary dissection. RAD/Chest PA and Lateral IMPRESSION: Normal x-ray examination of the chest. Electronically Signed: Aparna Roach MD at 22:10 EST Tel , Service support ,
--- NOTE | 2018-12-06 19:08 | ED.VISSUMM ---
- ER Visit Summary Date of Service: 12/06/18 Chief Complaint: Cough, shortness of breath History of Present Illness: The patient is a 53 F presents to the emergency department cough and shortness of breath. The patient has had upper respiratory symptoms for the past 5 or 6 days. She was actually seen here on Saturday. At that time, she had a clear chest x-ray. She was diagnosed with viral illness. She states that she is not doing any better. She is had continued cough, fever, chills, and sweats. She said productive sputum. She is also been having nausea and decreased p.o. intake. She denies any underlying history of lung disease. She denies any chest pain. She denies any leg swelling. Physical Examination: Vital signs reviewed General: Well-nourished, well-developed Head: Normocephalic, atraumatic Eyes: Pupils equal and reactive, extraocular muscles intact Neck, supple, no lymphadenopathy Heart: Regular rate and rhythm Respiratory: No distress, wheezing throughout all lung lopez Abdomen: Soft, nontender, nondistended, no peritoneal signs Back: Nontender Extremities: Nontender, no edema, no cords Skin: Normal color no rash Neuro: Alert and oriented, no focal or lateralizing deficits Test Results: [] Emergency Department Course and Treatment: The patient was not hypoxic. IV was established. She was given fluids and nebulized breathing treatments. After treatments, her aeration had improved. Her wheezing had resolved, but she did have some crackles in her left base. Screening labs are relatively unremarkable except for hypokalemia which was replaced orally. On reevaluation, the patient is resting much more comfortably. X-ray is questionable for left lower lobe infiltrate and there is no effusion. There is no evidence of heart failure. Given the patient's persistent symptoms, persistent fever and sweats, I am going to treat her as an infectious pneumonia. She is started on beta lactam and azithromycin. She is given her first dose here. I do feel that this patient is safe for outpatient therapy. She is comfortable with this plan of care and will be discharged home. Treatment Plan: [] Disposition: Discharge Impression: 1. Community acquired pneumonia 2. Hypokalemia This note was generated with [employer] Music [employer] software. It may contain incorrect words, spelling, and punctuation that were not noted in review of the chart prior to signing ED Disposition - Plan for ED Patient: Instructions: ED Pneumonia Adult Prescriptions: Amox/Clavulanate Tablet [Augmentin Tablet] 875 mg PO Q12H #20 tab Azithromycin [Zithromax] 250 mg PO DAILY #4 tab Referrals: Oma Palacio, APPLICATION SERVICES MANAGER-C [Primary Care Provider] -
[2018-12-06 19:16] VITALS: PULSE 105; RESP 22
[2018-12-06] MEDS: Ipratropium/Albuterol Sulfate 3 ML AMPUL.NEB INHALATION (19:16)
[2018-12-06] MEDS: Albuterol 2.5 MG/3 ML VIAL.NEB. INHALATION ×2 (19:16→19:42)
[2018-12-06] MEDS: 0.9% Normal Saline 1,000 ML 1000 ML IV (19:22)
[2018-12-06] MEDS: MethylPREDNISolone 125 MG/2 ML Vial IV (19:23)
[2018-12-06 19:25] LABS: Absolute Lymphocyte Count 2.11 X10^3/ul (0.83-4.51); Absolute Neutrophil Count 5.4 X10^3/uL (2.0-7.7); Basophil# 0.04 X10^3/uL; Basophil% 0.5 % (0-1); Eosinophil# 0.34 X10^3/uL; Eosinophils% 4.1 % (0-5); Hematocrit 33.7 % (37-47); Hemoglobin 11.3 g/dl (12.0-15.0); Lymphocyte # 2.11 X10^3/ul (4.0); Lymphocyte % 25.1 % (19-41); Mean Corp Hgb Conc 33.5 g/gl (32-36); Mean Corpuscular Hgb 29.7 pg (27.0-32.0); Mean Corpuscular Volume 88.7 fL (81-99); Mean Platelet Vol. 11.4 fl (6.2-12.0); Monocyte# 0.49 X10^3/uL; Monocyte% 5.8 % (0-10); Neutrophil # 5.41 X10^3/uL (2.7-7.7); Neutrophil % 64.5 % (47-70); POSITIVE COUNT NO; POSITIVE DIFFERENTIAL NO; POSITIVE MORPHOLOGY NO; Platelet Count 230 K/mm3 (150-450); RBC Distribution Width CV 12.3 % (11.6-14.6); RBC Distribution Width SD 38.6 fl (35.1-43.9); White Blood Count 8.4 K/mm3 (4.4-11.0)
[2018-12-06 19:28] VITALS: PULSE 88
[2018-12-06 19:41] LABS: ALB/GLOB Ratio 0.8 RATIO (0.9-2.4); AST(SGOT) 32 U/L (15-37); Alanine Aminotransfer ALT/SGPT 56 U/L (13-56); Albumin, Serum 3.4 g/dL (3.2-5.0); Alkaline Phosphatase 110 U/L (45-117); Anion Gap 8 (5-15); BUN 13 mg/dL (7-18); BUN/Creat Ratio 16.6 RATIO (10-20); Calcium,Total 8.7 mg/dL (8.5-10.1); Chloride 109 mmol/L (98-107); Creatinine, Serum 0.78 mg/dL (0.55-1.02); EST Glomerular Filtration Rate 82 mL/min (>60); Est Glom Filt Rate - Afr Amer 99 mL/min (>60); Estimated Creatinine Clearance 72.03 ml/min; Glucose 98 mg/dL (74-106); Protein, Total 7.4 g/dL (6.4-8.2); Sodium Level 141 mmol/L (136-145)
[2018-12-06 19:42] VITALS: PULSE 106; RESP 18
[2018-12-06] MEDS: Azithromycin 250 MG Tablet 500 MG PO (21:11)
[2018-12-06 21:12] VITALS: BP 111/70; PULSE 86; RESP 22; O2SAT 95
[2018-12-06] MEDS: Amox/Clavulanate 875 MG Tablet PO (21:13)
== END 2018-12-06 21:26 | disposition home or self-care (01) ==
LOC: ED 19:17
PROVIDERS: Emergency Provider Emergency Medicine; Family Provider Nurse Practitioner Primary Care; PCP Nurse Practitioner Primary Care
DX: J18.9 Pneumonia, unspecified organism (principal); E87.6 Hypokalemia; K21.9 Gastro-esophageal reflux disease without esophagitis; Z79.899 Other long term (current) drug therapy
CPT/HCPCS: 71046; 80053; 85025; 93005; 94640; 96361; 96374; 99285; J7030; A4216

== ENCOUNTER 2019-05-15 07:17 | Emergency (ER) | payer SELFPAY ==
[2019-05-15 07:18] VITALS: BP 137/78; PULSE 59; RESP 17; TEMP 36.6; O2SAT 100; BMI 25.6
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
--- NOTE | 2019-05-15 07:38 | DCINST.ED_ITS ---
ED Disposition - Plan for ED Patient: Instructions: Cellulitis Prescriptions: Clindamycin HCl [Cleocin] 300 mg PO Q6H #40 cap Prescription Printed Referrals: Oma Palacio EQUIPMENT INSTALLATION PROFESSIONAL-C [Primary Care Provider] - 3-5 Days
--- NOTE | 2019-05-15 07:38 | ED.DEP ---
ED Disposition - Plan for ED Patient: Instructions: Cellulitis Prescriptions: Clindamycin HCl [Cleocin] 300 mg PO Q6H #40 cap Prescription Printed Referrals: Oma Palacio GUEST EXPERIENCE SPECIALIST-C [Primary Care Provider] - 3-5 Days
[2019-05-15] MEDS: Clindamycin HCl 150 MG Capsule 300 MG PO (07:53)
== END 2019-05-15 07:56 | disposition home or self-care (01) ==
PROVIDERS: Emergency Provider Emergency Medicine; Family Provider Nurse Practitioner Primary Care; PCP Nurse Practitioner Primary Care
DX: L03.115 Cellulitis of right lower limb (principal); Z86.14 Personal history of Methicillin resistant Staphylococcus aureus infection
CPT/HCPCS: 10060; 99283

== ENCOUNTER 2019-08-09 15:36 | Emergency (ER) | payer OTHER, SELFPAY ==
[2019-08-09 15:38] VITALS: BP 132/80; PULSE 69; PULSE 74; RESP 15; RESP 18; TEMP 36.3; O2SAT 98; O2SAT 99; BMI 25.3
--- NOTE | 2019-08-09 15:54 | ED.DCSUM_ITS ---
- ER Visit Summary Date of Service: 08/09/19 Chief Complaint: Left ring finger injury at work History of Present Illness: The patient is a 54 F history of prior breast cancer. Patient is left-hand dominant. She works at [employer]. Today had a pneumatic gait shot on her left ring finger. Causing about a 1 to 2 cm laceration. Also complaining of pain to just the left ring finger. Tetanus is up-to-date. Physical Examination: Middle-aged female no acute distress vital signs stable afebrile. HEENT exam unremarkable. Neck nontender. Lungs clear to auscultation bilaterally. Heart regular rhythm no murmur. Chest were nontender. Abdomen soft nontender. Extremities moves all 4. Neurovascular intact. Specifically left elbow, forearm, wrist are nontender neurovascular intact with normal range of motion. Left hand ring finger on the ulnar side there is a 1 to 2 cm laceration. It does not gape. She also has pain along the proximal and mid phalanx of the left ring finger. She is full extension but has pain with flexion and does not want to do full flexion. Distally the fingers neurovascular intact. No signs of foreign body. No signs of infection. Neurologic exam is normal. Test Results: X-ray left ring finger 3 views no acute abnormality. No fracture. No dislocation. Read by myself. Emergency Department Course and Treatment: Patient did not waiting for pain. Her tetanus is already up-to-date. The wound be cleaned and dried. Dermabond closed. Treatment Plan: Ice and elevate. Tylenol and/or Motrin for pain. Follow-up with any signs of infection. Follow-up if not improving. Disposition: Discharge Impression: Acute left ring finger contusion Acute left ring finger laceration 1-1/2 cm with Dermabond repair by ER Worker's Comp. injury This note was generated with [employer] dictation software. It may contain incorrect words, spelling, and punctuation that were not noted in review of the chart prior to signing ED Disposition - Plan for ED Patient: Disposition: Home or Assisted Living Instructions: LACERATION, Hand Referrals: [facility] [GROUP OF PHYSICIANS] - 1 Week if not improving Additional Instructions: Ice and elevate left hand. Tylenol and/or Motrin for pain and swelling. Follow-up with not improving, continued pain or any signs of infection such as redness, pus, swelling or fever.
--- NOTE | 2019-08-09 15:55 | RAD_ITS ---
STUDY: X-RAY - LEFT HAND, ATTENTION FOURTH FINGER REASON FOR EXAM: Female, 54 years old. Crush injury TECHNIQUE: 3 view(s) of the finger were obtained. COMPARISON: None. FINDINGS: Normal metacarpal head. Normal metacarpophalangeal joint. Normal proximal phalanx. There is a nondisplaced chip fracture of the anterior aspect of the base of the fourth middle phalanx. Normal distal phalanx. Normal proximal interphalangeal joint. Normal distal interphalangeal joint. RAD/Finger(s) Min 2 Views IMPRESSION: Nondisplaced chip fracture of the anterior aspect of the base of the fourth middle phalanx. Electronically Signed: Mason Norton MD at 16:24 EDT , Service support ,
--- NOTE | 2019-08-09 15:57 | ED.DEP ---
ED Disposition - Plan for ED Patient: Disposition: Home or Assisted Living Instructions: LACERATION, Hand Referrals: [facility] [GROUP OF PHYSICIANS] - 1 Week if not improving Additional Instructions: Ice and elevate left hand. Tylenol and/or Motrin for pain and swelling. Follow-up with not improving, continued pain or any signs of infection such as redness, pus, swelling or fever.
== END 2019-08-09 16:20 | disposition home or self-care (01) ==
PROVIDERS: Emergency Provider Emergency Medicine; Family Provider Nurse Practitioner Primary Care; PCP Nurse Practitioner Primary Care
DX: S61.215A Laceration without foreign body of left ring finger without damage to nail, initial encounter (principal); Z85.3 Personal history of malignant neoplasm of breast; W45.8XXA Other foreign body or object entering through skin, initial encounter; Y93.89 Activity, other specified; Y92.89 Other specified places as the place of occurrence of the external cause; Y99.0 Civilian activity done for income or pay
CPT/HCPCS: 12001; 73140; 99283

== ENCOUNTER 2019-12-25 09:08 | Emergency (ER) | payer SELFPAY ==
[2019-12-25 09:10] VITALS: BP 120/81; PULSE 63; RESP 16; TEMP 36.6; O2SAT 94; BMI 26.0
--- NOTE | 2019-12-25 09:18 | EKG12_ITS ---
Test Reason : Blood Pressure : / mmHG Vent. Rate : 066 BPM Atrial Rate : 066 BPM P-R Int : 146 ms QRS Dur : 084 ms QT Int : 378 ms P-R-T Axes : 053 045 042 degrees QTc Int : 396 ms Normal sinus rhythm with sinus arrhythmia Normal ECG Confirmed by ROBI SNEED, HORACIO ([id number]), associate entertainment editor ERIC BUTTERFIELD ([id number]) on 12/28/2019 1:46:10 PM Referred By: ANU Confirmed By:CANDACE ROSENBAUM MD
--- NOTE | 2019-12-25 09:18 | RAD_ITS ---
STUDY: X-RAY CHEST REASON FOR EXAM: Female, 54 years old. SUDDEN ONSET OF CP TECHNIQUE: Single AP portable view of the chest. COMPARISON: Comparison is made with prior study dated December 06, 2018. FINDINGS: EKG electrodes are seen. The lungs are clear and expanded. There is no demonstrated pleural abnormality. Normal size heart. Normal mediastinum and poly. Normal visualized pulmonary arteries. Normal visualized aortic arch and descending thoracic aorta. There are diffuse degenerative changes of the visualized thoracic spine. Normal visualized ribs, clavicles, and shoulders. Once again, multiple surgical clips are seen overlying the upper abdomen. RAD/Chest 1 View (Portable) IMPRESSION: No acute abnormality is seen. Electronically Signed: Juan Antonio Nelson, at 9:58 EDT , Service support ,
[2019-12-25 09:25] LABS: Absolute Lymphocyte Count 1.67 X10^3/uL (0.83-4.51); Absolute Neutrophil Count 3.3 X10^3/uL (2.0-7.7); Basophil# 0.06 X10^3/uL; Basophil% 1.1 % (0-1); Eosinophil# 0.25 X10^3/uL; Eosinophils% 4.5 % (0-5); Lymphocyte # 1.67 X10^3/ul (4.0); Lymphocyte % 29.9 % (19-41); Mean Corp Hgb Conc 34.3 g/dL (32-36); Mean Corpuscular Hgb 30.7 pg (27.0-32.0); Mean Corpuscular Volume 89.5 fL (81-99); Mean Platelet Vol. 11.4 fl (6.2-12.0); Monocyte# 0.27 X10^3/uL; Monocyte% 4.8 % (0-10); NRBC Flagged by Analyzer 0 % (0-5); Neutrophil # 3.32 X10^3/uL (2.7-7.7); Neutrophil % 59.5 % (47-70); Platelet Count 241 K/mm3 (150-450); RBC Distribution Width CV 12.4 % (11.6-14.6); RBC Distribution Width SD 40.4 fl (35.1-43.9); Red Blood Count 3.91 M/mm3 (4.2-5.4); White Blood Count 5.6 K/mm3 (4.4-11.0)
--- NOTE | 2019-12-25 09:36 | ED.VISSUMM ---
- ER Visit Summary Date of Service: 12/25/19 Chief Complaint: Chest pain History of Present Illness: The patient is a 54 F with chest pain that started suddenly at work and lasted about 30 minutes. It was 8 out of 10. It was 2 out of 10 after aspirin and nitro. Patient had some sweats with it but no other symptoms. No cough, fever. No leg swelling or history of blood clots. No active cancer. No recent travel or immobilization. She had a stress test a year and a half ago which was normal. She was told her chest pain at that time was secondary to stress. She denies any history of diabetes, hypertension, hyperlipidemia, coronary disease. Denies any history of DVT or PE. Denies any history of aortic disease. Denies any trauma. Non-smoker. No hormones. History of breast cancer in remission for 10 years. Physical Examination: Afebrile and vital signs unremarkable. Alert and oriented. No acute distress. Skin normal without pallor or diaphoresis currently. Heart regular. Lungs clear. Abdomen soft. Calves soft and supple. Pulses strong and equal. Test Results: EKG shows sinus rhythm at a rate of 66. No signs of ischemia or infarction pattern. Chest x-ray and labs pending. Emergency Department Course and Treatment: Patient's pain has improved after aspirin and nitro. She is currently stable. EKG is reassuring. She was monitored. Will check labs and chest x-ray. Heart score is 2, pending normal troponin. Wells and Rollins scores are 0. Nothing to suggest aortic disease. Nothing to suggest infection. No trauma. Work-up including troponin is unremarkable. Patient is comfortable at rest. Will perform delta troponin as she is low risk. Delta was negative. No further issues. Patient will be discharged for outpatient follow-up. Return for any new or worsening issues. Treatment Plan: As above Disposition: Discharge Impression: Atypical chest pain This note was generated with [employer] dictation software. It may contain incorrect words, spelling, and punctuation that were not noted in review of the chart prior to signing ED Disposition - Plan for ED Patient: Referrals: Oma Palacio NP-C [Primary Care Provider] -
[2019-12-25 09:48] LABS: Anion Gap 7 (5-15); BUN 16 mg/dL (7-18); BUN/Creat Ratio 21.2 RATIO (10-20); Calcium,Total 9.1 mg/dL (8.5-10.1); Chloride 109 mmol/L (98-107); Creatinine, Serum 0.75 mg/dL (0.55-1.02); EST Glomerular Filtration Rate 85 mL/min (>60); Est Glom Filt Rate - Afr Amer 103 mL/min (>60); Estimated Creatinine Clearance 74.05 ml/min; Glucose 83 mg/dL (74-106); Potassium 4.4 mmol/L (3.5-5.1); Sodium Level 141 mmol/L (136-145)
[2019-12-25 10:09] VITALS: BP 140/84; PULSE 73; RESP 16; O2SAT 97
[2019-12-25 11:00] VITALS: BP 117/67; PULSE 59; RESP 18; O2SAT 95
[2019-12-25 13:04] VITALS: BP 125/76; PULSE 59; RESP 18
--- NOTE | 2019-12-25 13:23 | DCINST.ED_ITS ---
ED Disposition - Plan for ED Patient: Instructions: CHEST PAIN, NonCardiac Referrals: Oma Palacio, CORPORATE LEGAL ASSISTANT-C [Primary Care Provider] -
--- NOTE | 2019-12-25 13:23 | ED.DEP ---
ED Disposition - Plan for ED Patient: Instructions: CHEST PAIN, NonCardiac Referrals: Oma Palacio, ICT SALES REPRESENTATIVE-C [Primary Care Provider] -
[2019-12-25 13:33] VITALS: BP 124/78; PULSE 81; RESP 18
== END 2019-12-25 13:34 | disposition home or self-care (01) ==
LOC: ED 09:43
PROVIDERS: Emergency Provider Emergency Medicine; PCP Nurse Practitioner Primary Care
DX: R07.89 Other chest pain (principal); R61 Generalized hyperhidrosis; Z86.2 Personal history of diseases of the blood and blood-forming organs and certain disorders involving the immune mechanism; Z85.3 Personal history of malignant neoplasm of breast; Z87.442 Personal history of urinary calculi
CPT/HCPCS: 71045; 80048; 84484; 85025; 93005; 99285; J7030; A4216

== ENCOUNTER 2020-08-25 00:12 | Emergency (ER) | payer BC, SELFPAY ==
[2020-02-10 09:35] VITALS: BMI 24.7
[2020-08-25 00:14] VITALS: BP 125/79; PULSE 56; RESP 18; TEMP 36.6; O2SAT 100; BMI 26.5
--- NOTE | 2020-08-25 00:33 | ED.DCSUM_ITS ---
History of Present Illness Chief Complaint: General Illness Informant: Patient Onset: Hours - 6-7 Context: Sudden Onset Timing: Continuous, Waxes and wanes Quality: spinning Location: head Current Severity: Mild Maximum Severity: Severe Worsened by: changing positions, turning head Relieved by: remaining still sitting Associated Symptoms: nausea, mild bifrontal headache that started only about an hr ago Narrative: Patient states she was cleaning her house and had sudden onset of spinning dizziness that has made her nauseated. No diplopia or vision changes, peripheral neurologic symptoms, or loss of consciousness. Mild headache that started about an hour ago during this, no thunderclap. No vomiting. Able to walk but feels a little off balance. No tinnitus, recent URI, recent injury or fall, never had this before. No history of any stroke or blood clots. Does not take anticoagulants. She had a remote history of breast cancer that she had a double mastectomy for it otherwise she is healthy. - Past Medical History (1) GERD (gastroesophageal reflux disease) Status: Chronic (2) Personal history of breast cancer Status: Chronic Comment: left breast cancer Past Medical History - Allergies and Home Meds Allergies/Adverse Reactions: Allergies minocycline Allergy (Severe, Verified 08/25/20 00:14) Shortness of breath Sulfa (Sulfonamide Antibiotics) Allergy (Severe, Verified 08/25/20 00:14) Anaphylaxis oxaprozin [From Daypro] Adverse Reaction (Intermediate, Verified 08/25/20 00:14) Diarrhea tamoxifen [Tamoxifen] Adverse Reaction (Intermediate, Verified 08/25/20 00:14) Nausea/Vom/Diarrhea venlafaxine Adverse Reaction (Intermediate, Verified 08/25/20 00:14) Nausea adhesive Adverse Reaction (Mild, Verified 08/25/20 00:14) Rash latex Adverse Reaction (Mild, Verified 08/25/20 00:14) Rash acetaminophen [From Vicodin] Adverse Reaction (Verified 08/25/20 00:14) Nausea/Vom/Diarrhea hydrocodone [From Vicodin] Adverse Reaction (Verified 08/25/20 00:14) Nausea/Vom/Diarrhea Tide Laundry Detergent Allergy (Severe, Uncoded 08/25/20 00:14) Rash Primary Care Physician: Oma Palacio NP, CONCRETE MIXER OPERATOR-C [Primary Care Provider] - Surgical History: hysterectomy, - - Bilateral mastectomy, breast implants. Smoking Status: Never smoker - Family History Maternal Family History: Family History (Last Reviewed 02/10/20 @ 09:34 by Ashley Lay) Father CVA (cerebral vascular accident) Kidney disease Hypertension Hyperlipidemia Heart disease Skin cancer Mother Heart disease Hypertension CVA (cerebral vascular accident) Breast cancer Family History: Reports: Diabetes, Heart Disease Paternal Family History: Family History (Last Reviewed 02/10/20 @ 09:34 by Ashley Lay) Father CVA (cerebral vascular accident) Kidney disease Hypertension Hyperlipidemia Heart disease Skin cancer Mother Heart disease Hypertension CVA (cerebral vascular accident) Breast cancer Family History: Reports: Hypertension Review of Systems General: Denies: Chills, Fever, Sweats Eyes: Denies: Visual changes - bilaterally, Diplopia ENT: Denies: Rhinorrhea, Sore throat Cardiovascular: Denies: Chest pain, Palpitations Respiratory: Denies: Dyspnea, Cough, Dyspnea on exertion Gastrointestinal: Reports: Nausea. Denies: Abdominal pain, Vomiting, Diarrhea, Melena, Hematochezia Genitourinary: Denies: Dysuria, Hematuria, Frequency Musculoskeletal: Denies: Neck pain, Back pain, Swelling, Extremity Pain Skin: Denies: Rash, Wounds Neurological: Reports: Headache, - - Dizziness/vertigo. See HPI.. Denies: Weakness, Numbness Physical Exam Vital Signs/Narrative: Vital Signs Temp Pulse Resp BP Pulse Ox 08/25/20 00:14 97.9 F 56 L 18 125/79 H 100 Inital Vital Signs reviewed: Yes General: Well nourished, Well developed, No Acute Distress Head: Normocephalic, Atraumatic Eyes: Perrl, EOMI ENT: Moist mucous membranes, No rhinorrhea, TM's clear - EAC is clear as well bilaterally Neck: Supple, Nontender, - - No carotid bruits bilaterally Cardiovascular: Regular rate, Regular rhythm, No murmurs. Negative for: Tachycardia Respiratory: No distress, CTA bilaterally, Chest nontender Abdomen: Soft, Nontender, Nondistended, Normal bowel sounds Back: Nontender, Normal Inspection Extremities: Nontender, No edema Skin: Normal color, No rash Neurological: Alert, Oriented x3, Cranial nerves II-XII grossly intact, Normal Strength, Normal Sensation, - - Normal [id number] and [id number]-[id number] bilaterally. Positive Hemant-Hallpike to the left only, with horizontal nystagmus. No vertical or rotatory nystagmus. Negative/asymptomatic to the right. Psychological: Normal affect, Normal Mood Diagnostic/Tx/Re-eval - Medical Decision Making Reassured patient that this is consistent with a BPPV picture. Given that I do not think imaging or other studies are indicated emergently at this time. Supportive care advised, meclizine and Zofran given and prescribed, and advised to follow-up if symptoms do not resolve. She is comfortable with that plan. ED Disposition - Plan for ED Patient: Disposition: Home or Assisted Living Diagnosis: Benign paroxysmal positional vertigo of left ear Instructions: ED BPV Vertigo Prescriptions: Meclizine HCl [Antivert] 25 mg PO Q8H PRN #20 tab PRN Reason: Dizziness Transmission Status: [facility] Ondansetron [Zofran Odt] 8 mg PO Q8H PRN PRN #20 tab PRN Reason: Nausea Transmission Status: [facility] Referrals: Oma Palacio NP, CONCRETE MIXER OPERATOR-C [Primary Care Provider] - Wally Telles MD [STAFF PHYSICIAN] - 1 Week if not improving
[2020-08-25] MEDS: Meclizine HCl 25 MG Tablet PO (00:36)
[2020-08-25] MEDS: Ondansetron ODT 4 MG Tablet 8 MG PO (00:36)
[2020-08-25 00:48] VITALS: BP 125/79; PULSE 56; RESP 18; O2SAT 100
== END 2020-08-25 00:48 | disposition home or self-care (01) ==
LOC: ED 00:41
PROVIDERS: Emergency Provider Emergency Medicine; PCP Nurse Practitioner Primary Care
DX: H81.12 Benign paroxysmal vertigo, left ear (principal); K21.9 Gastro-esophageal reflux disease without esophagitis; Z85.3 Personal history of malignant neoplasm of breast; Z90.13 Acquired absence of bilateral breasts and nipples
CPT/HCPCS: 99283

== ENCOUNTER 2021-03-03 12:41 | Emergency (ER) | payer BC, SELFPAY ==
[2021-02-28 10:09] VITALS: BMI 25.8
[2021-03-03 12:42] VITALS: BP 124/75; PULSE 86; RESP 14; TEMP 36.8; O2SAT 97; BMI 26.2
--- NOTE | 2021-03-03 13:09 | EDS_ITS ---
HPI History of Present Illness Chief Complaint: Bite Informant: patient Onset/Context/Timing Onset: Days Context: Gradual Onset Current Severity: Mild Maximum Severity: Moderate Narrative Narrative: Patient presents secondary to a lump behind her left ear. She is also concerned that she may have strep throat. Patient noted lump behind her left ear at the hairline 2 days ago. She thinks she was bit by a spider. She does have a history of MRSA. She denies any drainage from the wound. No fever or chills. Patient states her soon-to-be son-in-law lives with her and was diagnosed last night with strep throat. 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 [facility] Medical History Anemia Apnea Atelectasis Hernia Hypotension Kidney stones MRSA (methicillin resistant staph aureus) culture positive Persistent headaches Home Medications meclizine 25 mg PO Q8H PRN #20 tab 08/25/20 [Rx Last Taken Unknown] ondansetron 8 mg PO Q8H PRN PRN #20 tab 08/25/20 [Rx Last Taken Unknown] clindamycin HCl 300 mg PO 4X/DAY #80 cap 03/03/21 [Rx Last Taken Unknown] Allergy/AdvReac Type Severity Reaction Status Date / Time minocycline Allergy Severe Shortness Verified 03/03/21 12:44 of breath Sulfa (Sulfonamide Allergy Severe Anaphylaxis Verified 03/03/21 12:44 Antibiotics) oxaprozin [From Daypro] AdvReac Intermediate Diarrhea Verified 03/03/21 12:44 tamoxifen [Tamoxifen] AdvReac Intermediate Nausea/Vom/ Verified 03/03/21 12:44 Diarrhea venlafaxine AdvReac Intermediate Nausea Verified 03/03/21 12:44 adhesive AdvReac Mild Rash Verified 03/03/21 12:44 latex AdvReac Mild Rash Verified 03/03/21 12:44 hydrocodone [From Vicodin] AdvReac Nausea/Vom/ Verified 03/03/21 12:44 Diarrhea Tide Laundry Detergent Allergy Severe Rash Uncoded 03/03/21 12:44 Family History Father CVA (cerebral vascular accident) Kidney disease Hypertension Hyperlipidemia Heart disease Skin cancer Mother Heart disease Hypertension CVA (cerebral vascular accident) Breast cancer Surgical History H/O hernia repair H/O tubal ligation History of mastectomy Social History Smoking Status: Never smoker ROS ROS ED Constitutional Constitutional ED: Denies chills or fever(s) Eyes Eyes: Denies change in vision ENT ENT ED: Reports sore throat Cardiovascular Cardiovascular: Denies chest pain Respiratory/Chest Respiratory/Chest: Denies cough or dyspnea Gastrointestinal Gastrointestinal: Denies abdominal pain, diarrhea, nausea or vomiting Genitourinary Genitourinary ED: Denies dysuria Musculoskeletal Musculoskeletal: Denies back pain Integumentary Reports abscess; Denies rash Neurologic Neurologic: Denies headache(s) or weakness Psychiatric Psychiatric: Denies anxiety or depression Endocrine Endocrinology: Denies polydipsia or polyuria Allergic/Immunologic Allergic/Immunologic ED: Denies urticaria EXAM Physical Exam Const Vital Signs: 03/03/21 12:42 Temperature 98.3 F Temperature Source Temporal Pulse Rate 86 Respiratory Rate 14 Blood Pressure 124/75 H Blood Pressure Mean 91 Pulse Ox 97 Oxygen Delivery Method Room Air Positive well nourished and well developed General Appearance ED: well developed HEENT Reports normocephalic and head/scalp atraumatic HEENT Narrative: Posterior pharynx examination normal. Eyes PERRL and EOMs intact bilaterally Neck supple Chest Wall inspection of chest normal and palpation of chest normal Resp normal respiratory effort and clear to auscultation bilaterally Cardio regular rate and regular rhythm GI normal to inspection, nondistended, normoactive bowel sounds Palpation: soft Extremity normal to inspection Neuro oriented x3 and no sensory deficits noted Sensorium / Orientation: alert Motor Exam: strength 5/5 throughout Psych mental status grossly normal Skin Skin Narrative: 1 cm diameter cutaneous abscess over the left occiput at the hairline. No surrounding cellulitis. No fluctuance. MDM MDM Treatment and Re-Evaluation Comments:: Patient does have an allergy to tetracyclines as well as sulfa. She will be treated with clindamycin to cover MRSA as best as possible with her allergies. Discharge Plan Triage Chief Complaint: Bite ED Provider: Lindsay Machado Dx/Rx/DC Orders Clinical Impression: Cutaneous abscess Instructions: ED Abscess Antibiotic Treatment Only Prescriptions: New clindamycin HCl 150 MG capsule 300 mg PO 4X/DAY Qty: 80 RF: 0 No Action ondansetron 4 MG tablet 8 mg PO Q8H PRN PRN (Reason: Nausea) Qty: 20 RF: 0 meclizine 25 MG tablet 25 mg PO Q8H PRN (Reason: Dizziness) Qty: 20 RF: 0 Primary Care Provider: Oma Palacio NP Referrals: Oma Palacio NP, MECHANICS SUPERVISOR-C [Primary Care Provider] - 1 Week if not improving Disposition Disposition: Home, self care
[2021-03-03] MEDS: Clindamycin HCl 150 MG Capsule 300 MG PO (13:34)
== END 2021-03-03 13:36 | disposition home or self-care (01) ==
LOC: ED 13:27
PROVIDERS: Emergency Provider Emergency Medicine; PCP Nurse Practitioner Primary Care
DX: H60.02 Abscess of left external ear (principal); Z86.14 Personal history of Methicillin resistant Staphylococcus aureus infection; Z86.2 Personal history of diseases of the blood and blood-forming organs and certain disorders involving the immune mechanism; Z87.442 Personal history of urinary calculi
CPT/HCPCS: 99283

== ENCOUNTER → 2021-03-09 12:25 | Outpatient (CLI) | payer BC, SELFPAY ==
[2021-02-28 10:09] VITALS: BMI 25.8
[2021-03-03 12:42] VITALS: BMI 26.2
--- NOTE | 2021-03-09 12:27 | MRI_ITS ---
STUDY: MRI BRAIN WITH AND WITHOUT CONTRAST REASON FOR EXAM: Female, 55 years old. HEADACHES, HX OF BREAST CA TECHNIQUE: Standardized multiplanar fat and water weighted pulse sequences were obtained. IV 13cc dotarem was administered for the contrast portion of the examination. COMPARISON: None. FINDINGS: Normal size of the ventricles and extra-axial spaces for the patient''s age. Normal white matter tracts of the supratentorial brain. Normal bilateral basal ganglia. Normal thalami. There is no extra-axial fluid accumulation. Normal flow voids within the major intracranial circulation suggesting patency by spin echo criteria. Normal venous enhancement. There is no enhancing intra-axial or extra-axial abnormality. Normal sella turcica, pituitary gland, infundibular stalk, optic chiasm and hypothalamus. Normal tectal plate and pineal gland. Normal midbrain, marcell and medulla. Normal cerebellum. Normal basal cisterns. Normal bilateral temporal bones. Normal bilateral internal auditory canals. No demonstrated orbital abnormality, within the constraints of a routine brain study. Minor mucosal thickening of ethmoid air cells bilaterally.. Normal calvarium and skull base. Normal visualized soft tissue structures. Normal visualized upper cervical spine. MRI/Brain W/WO Contrast IMPRESSION: Normal unenhanced and enhanced MRI of the brain Minor bilateral ethmoid sinusitis. Electronically Signed: Faheem Small MD at 15:54 EDT , Service support ,
== END ==
PROVIDERS: PCP Nurse Practitioner Primary Care; Referring Provider Internal Medicine Medical Oncology; Visit Provider Internal Medicine Medical Oncology
DX: R51.9 Headache, unspecified (principal); Z85.3 Personal history of malignant neoplasm of breast
CPT/HCPCS: 70553; A9575

== ENCOUNTER 2021-07-01 09:25 | Emergency (ER) | payer BC, SELFPAY ==
[2021-07-01 09:26] VITALS: BP 106/74; PULSE 86; RESP 16; TEMP 36.3; O2SAT 98; BMI 24.0
--- NOTE | 2021-07-01 09:51 | EX.ED.DYSGE1 ---
HPI History of Present Illness Chief Complaint: Headache Informant: patient Onset/Context/Timing Onset: Days (5) Context: Gradual Onset Timing: Continuous Quality: achy, cough Location: all over Current Severity: Moderate Maximum Severity: Moderate Worsened by: nothing Relieved by: nothing Associated Symptoms Associated Symptoms: headache, diarrhea, cough, fatigue Associated Symptoms ED: cough Narrative Narrative: Patient presents along with 2 other household members including her daughter all of which have the same symptoms for similar periods time. Not vaccinated against Covid, no known Covid contacts. She is healthy. [facility] Medical History Anemia Apnea Atelectasis Hernia Hypotension Kidney stones MRSA (methicillin resistant staph aureus) culture positive Persistent headaches Home Medications meclizine 25 mg PO Q8H PRN #20 tab 08/25/20 [Rx Last Taken Unknown] ondansetron 8 mg PO Q8H PRN PRN #20 tab 08/25/20 [Rx Last Taken Unknown] clindamycin HCl 300 mg PO 4X/DAY #80 cap 03/03/21 [Rx Last Taken Unknown] Allergy/AdvReac Type Severity Reaction Status Date / Time minocycline Allergy Severe Shortness Verified 07/01/21 09:30 of breath Sulfa (Sulfonamide Allergy Severe Anaphylaxis Verified 07/01/21 09:30 Antibiotics) oxaprozin [From Daypro] AdvReac Intermediate Diarrhea Verified 07/01/21 09:30 tamoxifen [Tamoxifen] AdvReac Intermediate Nausea/Vom/ Verified 07/01/21 09:30 Diarrhea venlafaxine AdvReac Intermediate Nausea Verified 07/01/21 09:30 adhesive AdvReac Mild Rash Verified 07/01/21 09:30 latex AdvReac Mild Rash Verified 07/01/21 09:30 hydrocodone [From Vicodin] AdvReac Nausea/Vom/ Verified 07/01/21 09:30 Diarrhea Tide Laundry Detergent Allergy Severe Rash Uncoded 07/01/21 09:30 Family History Father CVA (cerebral vascular accident) Kidney disease Hypertension Hyperlipidemia Heart disease Skin cancer Mother Heart disease Hypertension CVA (cerebral vascular accident) Breast cancer Surgical History H/O hernia repair H/O tubal ligation History of mastectomy Social History Smoking Status: Never smoker ROS ROS ED Constitutional Constitutional ED: Reports body ache(s), chills, fatigue, fever(s), headache(s) and malaise Eyes Eyes: Denies change in vision or diplopia ENT ENT ED: Denies rhinorrhea or sore throat Cardiovascular Cardiovascular: Denies chest pain or palpitations Respiratory/Chest Respiratory/Chest: Reports cough; Denies dyspnea or dyspnea on exertion Gastrointestinal Gastrointestinal: Reports diarrhea; Denies abdominal pain, nausea or vomiting Genitourinary Genitourinary ED: Denies dysuria or hematuria Musculoskeletal Musculoskeletal: Denies back pain or neck pain Integumentary Denies abscess or rash Neurologic Neurologic: Reports headache(s); Denies paresthesias or weakness Psychiatric Psychiatric: Denies anxiety or suicidal thoughts EXAM Physical Exam Const Vital Signs: 07/01/21 09:26 07/01/21 09:39 Temperature 97.4 F L Temperature Source Temporal Pulse Rate 86 Respiratory Rate 16 Respiratory Effort Normal Non-Labored Blood Pressure 106/74 Blood Pressure Mean 84 Pulse Ox 98 Oxygen Delivery Method Room Air Positive well nourished and well developed Constitutional Narrative: Well-appearing, no distress General Appearance ED: well developed and NAD HEENT Reports moist mucous membranes normocephalic and atraumatic Eyes PERRL and EOMs intact bilaterally Neck full ROM and supple Resp normal respiratory effort and clear to auscultation bilaterally Cardio regular rate, regular rhythm and no murmurs Rate: Negative for tachycardic GI non-tender and non-distended Auscultation: normoactive bowel sounds Palpation: soft Back/Spine no CVA tenderness General Back: other FROM Extremity normal to inspection and no calf tenderness General Extremety ED: Negative for edema, pulses abnormal or tenderness General Extremity: Negative for edema or pulses abnormal Neuro oriented x3, CN's II-XII intact bilaterally and no sensory deficits noted Sensorium / Orientation: awake and alert Motor Exam: strength 5/5 throughout Skin no rashes or lesions noted and no wounds MDM MDM MDM Narrative Medical decision making narrative: Patient has a positive Covid test. Her whole household has Covid. Her oxygen levels are good, her vitals are normal, and she was given appropriate discharge instructions and reasons to return. Lab Data Attestation: I reviewed the patient's lab results. Discharge Plan Triage Chief Complaint: Headache ED Provider: Alexis Ratliff Dx/Rx/DC Orders Clinical Impression: COVID-19 Instructions: Coronavirus Disease 2019 (COVID-19): Caring for Yourself or Others Prescriptions: No Action ondansetron 4 MG tablet 8 mg PO Q8H PRN PRN (Reason: Nausea) Qty: 20 RF: 0 meclizine 25 MG tablet 25 mg PO Q8H PRN (Reason: Dizziness) Qty: 20 RF: 0 clindamycin HCl 150 MG capsule 300 mg PO 4X/DAY Qty: 80 RF: 0 Primary Care Provider: Oma Palacio NP Referrals: Oma Palacio NP, DIRECTOR ORACLE DATABASE-C [Primary Care Provider] - As Needed Activity Restrictions/Additional Instructions: Try to get a home portable pulse oximeter and closely watch her oxygen levels periodically. If you stay below 90% for more than a minute or so, and/or you are feeling like your breathing is getting worse, return to the emergency department for further evaluation. Disposition Disposition: Home, Self Care
[2021-07-01] MEDS: Ibuprofen 600 MG Tablet PO (10:04)
[2021-07-01 10:38] VITALS: PULSE 79; RESP 20; O2SAT 95
== END 2021-07-01 10:39 | disposition home or self-care (01) ==
PROVIDERS: Emergency Provider Emergency Medicine; PCP Nurse Practitioner Primary Care
DX: U07.1 COVID-19 (principal); Z86.2 Personal history of diseases of the blood and blood-forming organs and certain disorders involving the immune mechanism; Z86.14 Personal history of Methicillin resistant Staphylococcus aureus infection; Z87.442 Personal history of urinary calculi
CPT/HCPCS: 87426; 99283

== ENCOUNTER 2022-07-12 16:55 | Emergency (ER) | payer BC, SELFPAY ==
[2022-07-12 16:56] VITALS: BP 129/81; PULSE 79; RESP 16; TEMP 36; O2SAT 100; BMI 26.6
--- NOTE | 2022-07-12 17:12 | EDS_ITS ---
HPI History of Present Illness Chief Complaint: Lower Extremity Injury Informant: patient Onset/Context/Timing Onset: Today Current Severity: Mild Maximum Severity: Moderate Narrative Narrative: Patient presents with pain to the left second and third toes. She states she felt well when she went to sleep last night. She sleeps in her recliner. When she woke this morning she had pain in just these 2 toes. She believes she kicked the coffee table or end of the recliner last night and injured herself. [facility] Medical History Anemia Apnea Atelectasis GERD (gastroesophageal reflux disease) Hernia Hypotension Kidney stones MRSA (methicillin resistant staph aureus) culture positive Persistent headaches Personal history of breast cancer Home Medications meclizine 25 mg tablet 25 mg PO Q8H PRN Dizziness #20 tabs 08/25/20 [Rx Last Taken Unknown] ondansetron 4 mg disintegrating tablet 8 mg PO Q8H PRN PRN Nausea #20 tabs 08/25/20 [Rx Last Taken Unknown] clindamycin HCl 150 mg capsule 300 mg PO 4X/DAY #80 caps 03/03/21 [Rx Last Taken Unknown] Allergy/AdvReac Type Severity Reaction Status Date / Time minocycline Allergy Severe Shortness Verified 07/12/22 16:56 of breath Sulfa (Sulfonamide Allergy Severe Anaphylaxis Verified 07/12/22 16:56 Antibiotics) oxaprozin [From Daypro] AdvReac Intermediate Diarrhea Verified 07/12/22 16:56 tamoxifen [Tamoxifen] AdvReac Intermediate Nausea/Vom/ Verified 07/12/22 16:56 Diarrhea venlafaxine AdvReac Intermediate Nausea Verified 07/12/22 16:56 adhesive AdvReac Mild Rash Verified 07/12/22 16:56 latex AdvReac Mild Rash Verified 07/12/22 16:56 hydrocodone [From Vicodin] AdvReac Nausea/Vom/ Verified 07/12/22 16:56 Diarrhea Tide Laundry Detergent Allergy Severe Rash Uncoded 07/12/22 16:56 Family History Father CVA (cerebral vascular accident) Kidney disease Hypertension Hyperlipidemia Heart disease Skin cancer Mother Heart disease Hypertension CVA (cerebral vascular accident) Breast cancer Surgical History H/O hernia repair H/O tubal ligation History of mastectomy Social History Smoking Status: Never smoker ROS ROS ED Constitutional Constitutional ED: Denies chills or fever(s) Eyes Eyes: Denies change in vision or discharge from eye(s) ENT ENT ED: Denies discharge from eye(s), rhinorrhea or sore throat Cardiovascular Cardiovascular: Denies chest pain or palpitations Respiratory/Chest Respiratory/Chest: Denies cough or dyspnea Gastrointestinal Gastrointestinal: Denies abdominal pain, nausea or vomiting Genitourinary Genitourinary ED: Denies dysuria Musculoskeletal Musculoskeletal: Reports extremity pain; Denies back pain Integumentary Denies Abrasions or rash Neurologic Neurologic: Denies headache(s) or weakness Allergic/Immunologic Allergic/Immunologic ED: Denies lip swelling or urticaria EXAM Physical Exam Const Vital Signs: 07/12/22 16:56 Temperature 96.8 F L Temperature Source Temporal Pulse Rate 79 Respiratory Rate 16 Blood Pressure 129/81 H Blood Pressure Mean 97 Pulse Ox 100 Oxygen Delivery Method Room Air Positive well nourished and well developed General Appearance ED: well developed HEENT Reports normocephalic and head/scalp atraumatic Eyes PERRL and EOMs intact bilaterally Neck supple Chest Wall inspection of chest normal and palpation of chest normal Resp normal respiratory effort Cardio regular rate and regular rhythm Extremity Extremity Narrative: Mild times palpation left second and third toes. No ecchymosis or discoloration noted. Good cap refill and sensation. No tenderness over the midfoot. Neuro oriented x3 and no sensory deficits noted Sensorium / Orientation: alert Motor Exam: strength 5/5 throughout Psych mental status grossly normal Skin no rashes or lesions noted MDM MDM MDM Narrative Medical decision making narrative: Left foot x-ray obtained. Radiography Diagnostic Testing: Clinical Impression(s) from Imaging Studies Foot X-Ray 07/12/22 17:31 IMPRESSION: Negative left foot x-rays. Electronically Signed: Ernesto Giles MD at 17:49 EDT , Treatment and Re-Evaluation Narrative: Per my interpretation no evidence of acute fracture. Radiology interpretation is reviewed and agrees. Bruce wrap will be applied to the left foot. She may weight-bear as tolerated. I have encouraged Tylenol or ibuprofen as needed to help with pain. Discharge Plan Triage Chief Complaint: Lower Extremity Injury ED Provider: Lindsay Machado Dx/Rx/DC Orders Clinical Impression: Contusion of foot Instructions: ED Foot Contusion Prescriptions: No Action ondansetron 4 MG tablet 8 mg PO Q8H PRN PRN (Reason: Nausea) Qty: 20 0RF meclizine 25 MG tablet 25 mg PO Q8H PRN (Reason: Dizziness) Qty: 20 0RF clindamycin HCl 150 MG capsule 300 mg PO 4X/DAY Qty: 80 0RF Primary Care Provider: Oma Palacio NP Referrals: Oma Palacio NP, FACILITY TECHNICIAN-[facility] [Primary Care Provider] - 1 Week if not improving Disposition Disposition: Home, Self Care
--- NOTE | 2022-07-12 17:31 | RAD_ITS ---
EXAM: XR LEFT FOOT COMPLETE, 3 OR MORE VIEWS CLINICAL INDICATION: injury TECHNIQUE: Frontal, lateral and oblique views of the left foot. This report was created using [employer] report generation technology. COMPARISON: None. FINDINGS: BONES/JOINTS: Unremarkable. No acute fracture. No subluxation. Normal alignment. Preservation of the joint space. No sclerotic or destructive changes observed. SOFT TISSUES: Unremarkable. No soft tissue swelling or gas. No radiopaque foreign body. RAD/Foot min 3 Views IMPRESSION: Negative left foot x-rays. Electronically Signed: Ernesto Giles MD at 17:49 EDT ,
[2022-07-12 18:11] VITALS: RESP 16
== END 2022-07-12 18:18 | disposition home or self-care (01) ==
PROVIDERS: Emergency Provider Emergency Medicine; PCP Nurse Practitioner Primary Care; Visit Provider Emergency Medicine
DX: S90.32XA Contusion of left foot, initial encounter (principal); W22.8XXA Striking against or struck by other objects, initial encounter; Z86.14 Personal history of Methicillin resistant Staphylococcus aureus infection; Z85.3 Personal history of malignant neoplasm of breast; Z87.442 Personal history of urinary calculi; K21.9 Gastro-esophageal reflux disease without esophagitis
CPT/HCPCS: 73630; 99282

== ENCOUNTER → 2023-02-28 | Outpatient (CLI) | payer BC, SELFPAY ==
--- NOTE | 2023-02-28 14:57 | US_ITS ---
INDICATION: h/o breast ca, r/o any met disease EXAMINATION: Ultrasound US Pelvis Non-OB Complete TECHNIQUE: Transabdominal sonographic images of the pelvis. Grayscale, spectral waveform, and color flow Doppler evaluation of the adnexa. COMPARISON: 11/26/2018 CT. No prior ultrasound for comparison. FINDINGS: UTERUS: Status post hysterectomy. RIGHT OVARY: Status post oophorectomy. LEFT OVARY: Status post oophorectomy. FREE FLUID: No significant free fluid. US/Pelvic (Non ) IMPRESSION: No sonographic evidence of a mass or free fluid. Status post hysterectomy and bilateral oophorectomy. If there is a clinical concern for metastatic disease, CT would be a much more sensitive modality. Electronically Signed: Faheem Miller DO at 5:26 EDT ,
== END | disposition home or self-care (01) ==
LOC: US 14:56
PROVIDERS: PCP Nurse Practitioner Primary Care; Referring Provider Internal Medicine Medical Oncology; Visit Provider Internal Medicine Medical Oncology
DX: Z85.3 Personal history of malignant neoplasm of breast (principal)
CPT/HCPCS: 76856

== ENCOUNTER → 2023-03-02 | Outpatient (CLI) | payer BC, SELFPAY ==
--- NOTE | 2023-03-02 09:45 | US_ITS ---
STUDY: ABDOMINAL ULTRASOUND REASON FOR EXAM: Female, 57 years old. abnormal liver function TECHNIQUE: Transabdominal ultrasound was performed with real-time and static spence scale imaging. TECHNICAL QUALITY: Adequate. COMPARISON: None. FINDINGS: Liver: The liver measures 12.4 cm. There is increased echogenicity consistent with fatty infiltration. The bile ducts are within normal limits. There is hepatic color flow. The direction of portal flow is hepatopetal. There is no demonstrated mass lesion. Portal vein measurement: Gallbladder: Normal distended gallbladder. The gallbladder wall measures 2.4 mm. There is a negative sonographic Sarabia''s sign. There is no pericholecystic fluid. There are no gallstones. Common Bile Duct (C.B.D.): The common bile duct measures 5 mm. Pancreas: Suboptimally seen, grossly negative. Spleen: Normal size of the spleen. The spleen measures 8.6 cm. Right Kidney: Normal size of the right kidney. The right kidney measures 10.7 cm. Normal renal cortex. The right cortex measures 2.7 cm. There is no demonstrated renal mass or cyst. There is no right hydronephrosis. Left Kidney: Normal size of the left kidney. The left kidney measures 10.5 cm. Normal renal cortex. The left cortex measures 1.2 cm. Small simple cysts are noted. Largest is 1.9 cm greatest dimension. There is no left hydronephrosis. Aorta: 1.7 cm I.V.C.: The IVC is patent. There is no ascites. US/Abdomen Complete IMPRESSION: No definite acute or significant abnormality seen. Electronically Signed: Patrick Granados MD at 18:19 EDT ,
== END | disposition home or self-care (01) ==
LOC: US 09:44
PROVIDERS: PCP Nurse Practitioner Primary Care; Referring Provider Internal Medicine Medical Oncology; Visit Provider Internal Medicine Medical Oncology
DX: R94.5 Abnormal results of liver function studies (principal); Z85.3 Personal history of malignant neoplasm of breast
CPT/HCPCS: 76700

== ENCOUNTER → 2023-05-06 | Outpatient (CLI) | payer BC, SELFPAY ==
--- NOTE | 2023-05-06 07:19 | US_ITS ---
STUDY: ABDOMINAL ULTRASOUND - ELASTOGRAPHY REASON FOR VISIT: Female, 57 years old. Fatty infiltration of the liver. TECHNIQUE: Liver stiffness measurements were obtained on a [employer] RS 85 ultrasound machine using a CA 1-7 probe following the SRU guidelines. 3 measurements were obtained using a 2-D-SWE method. TheIQR/M was 23 % suggesting a quality data set. TECHNICAL QUALITY: Adequate. COMPARISON: None. FINDINGS: Liver: Fatty infiltration of the liver. Median liver stiffness measured 9 kPa. Abdomen: There is no demonstrated mass lesion. US/Elastography Parenchyma/Organ IMPRESSION: Liver stiffness measures 9 kPa compatible with F2-F3 (Mild to moderate liver fibrosis) Metavir score. Electronically Signed: Juan Antonio Nelson MD at 12:35 EDT ,
[2023-05-06 09:22] LABS: Hemoglobin A1c 5.3 % (3.8-5.6)
[2023-05-06 09:23] LABS: GGTP 19 U/L (5-55)
[2023-05-06 10:31] LABS: ALB/GLOB Ratio 1.1 RATIO (0.9-2.4); AST(SGOT) 18 U/L (15-37); Alanine Aminotransfer ALT/SGPT 31 U/L (13-56); Albumin, Serum 3.8 g/dL (3.2-5.0); Alkaline Phosphatase 80 U/L (45-117); Anion Gap 4 (5-15); BUN 15 mg/dL (7-18); BUN/Creat Ratio 19.2 RATIO (10-20); Calcium,Total 9.7 mg/dL (8.5-10.1); Chloride 108 mmol/L (98-107); Creatinine, Serum 0.78 mg/dL (0.55-1.02); EST Glomerular Filtration Rate 81 mL/min (>60); Est Glom Filt Rate - Afr Amer 98 mL/min (>60); Globulin 3.6 g/dL (2.2-4.2); Glucose 87 mg/dL (74-106); Potassium 4.1 mmol/L (3.5-5.1); Protein, Total 7.4 g/dL (6.4-8.2); Sodium Level 139 mmol/L (136-145)
[2023-05-06 15:47] LABS: Xtra Tube EP Lab EXTRA TUBE
== END | disposition home or self-care (01) ==
PROVIDERS: PCP Nurse Practitioner Primary Care; Referring Provider Internal Medicine Medical Oncology; Visit Provider Internal Medicine Medical Oncology
DX: K76.0 Fatty (change of) liver, not elsewhere classified (principal); R94.5 Abnormal results of liver function studies; Z85.3 Personal history of malignant neoplasm of breast
CPT/HCPCS: 36415; 76981; 80053; 82977; 83036

== ENCOUNTER → 2023-07-19 | Outpatient (CLI) | payer BC, SELFPAY ==
[2023-07-19 15:44] LABS: Ferritin 157 ng/mL (8-252)
[2023-07-22 13:07] LABS: ANTINUCLEAR ANTIBODIES DIRECT Negative (Negative)
[2023-07-22 14:08] LABS: Anti-Smooth Muscle ABS 10 Units (0-19)
== END | disposition home or self-care (01) ==
PROVIDERS: PCP Nurse Practitioner Primary Care; Referring Provider Internal Medicine Gastroenterology; Visit Provider Internal Medicine Gastroenterology
DX: K75.9 Inflammatory liver disease, unspecified (principal)
CPT/HCPCS: 36415; 82390; 82728; 83516; 86038

== ENCOUNTER → 2023-09-11 | Outpatient (CLI) | payer BC, SELFPAY ==
--- NOTE | 2023-09-11 11:17 | EKG12_ITS ---
Test Reason : PREOP Blood Pressure : / mmHG Vent. Rate : 079 BPM Atrial Rate : 079 BPM P-R Int : 146 ms QRS Dur : 076 ms QT Int : 348 ms P-R-T Axes : 047 035 035 degrees QTc Int : 399 ms Normal sinus rhythm Normal ECG Confirmed by BEATRIZ SNEED, STALIN ([id number]), loan expeditor FADY HOWARD ([id number]) on 09/12/2023 9:27:41 AM Referred By: Adam Argueta Confirmed By:STALIN HENDERSON MD
[2023-09-11 11:19] LABS: Hematocrit 37.8 % (37-47); Hemoglobin 12.3 g/dL (12.0-15.0); Mean Corp Hgb Conc 32.5 g/dL (32-36); Mean Corpuscular Volume 92.2 fL (81-99); Mean Platelet Vol. 10.8 fl (6.2-12.0); Platelet Count 292 K/mm3 (150-450); RBC Distribution Width CV 12.3 % (11.6-14.6); RBC Distribution Width SD 41.7 fl (35.1-43.9); White Blood Count 7.8 K/mm3 (4.4-11.0)
[2023-09-11 11:35] LABS: Prothrombin Time (Protime)PT. 13.2 SECONDS (11.7-14.9)
[2023-09-11 11:40] LABS: Magnesium 2.2 mg/dL (1.6-2.6)
== END | disposition home or self-care (01) ==
LOC: PAT 10-09 12:20
PROVIDERS: Anesthesiology; PCP Nurse Practitioner Primary Care; Referring Provider Surgery; Visit Provider Surgery
DX: Z01.818 Encounter for other preprocedural examination (principal); Z01.810 Encounter for preprocedural cardiovascular examination; Z01.812 Encounter for preprocedural laboratory examination
CPT/HCPCS: 36415; 83735; 85027; 85610; 93005

== ENCOUNTER 2024-01-03 17:41 | Emergency (ER) | payer BC, SELFPAY ==
[2024-01-03 17:44] VITALS: BP 93/55; PULSE 95; RESP 22; TEMP 37.1; O2SAT 95; BMI 26.0
[2024-01-03 17:51] VITALS: O2SAT 92
--- NOTE | 2024-01-03 17:51 | EKG12_ITS ---
Test Reason : cp Blood Pressure : / mmHG Vent. Rate : 090 BPM Atrial Rate : 090 BPM P-R Int : 132 ms QRS Dur : 074 ms QT Int : 350 ms P-R-T Axes : 044 043 035 degrees QTc Int : 428 ms Normal sinus rhythm with sinus arrhythmia Normal ECG Confirmed by Thee Wells ([id number]), film and video editor FADY HOWARD ([id number]) on 01/07/2024 8:54:15 AM Referred By: Celina Confirmed By:Thee Wells
--- NOTE | 2024-01-03 18:03 | RAD_ITS ---
STUDY: X-RAY CHEST REASON FOR EXAM: Female, 58 years old. chest pain TECHNIQUE: Single frontal view of the chest. COMPARISON: None. FINDINGS: Left lower lobe infiltrate. There is no demonstrated pleural abnormality. Normal size heart. Normal mediastinum and poly. Normal visualized pulmonary arteries. Normal visualized aortic arch and descending thoracic aorta. Normal visualized thoracic spine. Normal visualized ribs, clavicles, and shoulders. There is no demonstrated abnormality of the visualized soft tissue structures of the upper abdomen. Surgical clips upper abdomen. RAD/Chest 1 View (Portable) IMPRESSION: Multiple lobe infiltrate. Electronically Signed: Milo Gutierrez MD at 18:45 EDT ,
[2024-01-03 18:30] LABS: Absolute Lymphocyte Count 1.22 X10^3/uL (0.83-4.51); Absolute Neutrophil Count 7.7 X10^3/uL (2.0-7.7); Basophil# 0.02 X10^3/uL; Basophil% 0.2 % (0-1); Eosinophil# 0.02 X10^3/uL; Eosinophils% 0.2 % (0-5); Hematocrit 34.1 % (37-47); Hemoglobin 11.3 g/dL (12.0-15.0); Lymphocyte # 1.22 X10^3/ul (0.83-4.51); Mean Corp Hgb Conc 33.1 g/dL (32-36); Mean Corpuscular Hgb 29.5 pg (27.0-32.0); Mean Platelet Vol. 10.9 fl (6.2-12.0); Monocyte# 0.39 X10^3/uL; Monocyte% 4.2 % (0-10); NRBC Flagged by Analyzer 0 % (0-5); Neutrophil # 7.69 X10^3/uL (2.7-7.7); Neutrophil % 82.2 % (47-70); Platelet Count 203 K/mm3 (150-450); RBC Distribution Width CV 12.3 % (11.6-14.6); RBC Distribution Width SD 40.2 fl (35.1-43.9); Red Blood Count 3.83 M/mm3 (4.2-5.4); White Blood Count 9.4 K/mm3 (4.4-11.0)
[2024-01-03 18:35] VITALS: BP 108/69; PULSE 85; RESP 16; O2SAT 94
--- NOTE | 2024-01-03 18:41 | EDS_ITS ---
HPI <JEFF Alexander - Last Filed: 01/03/24 21:31> History of Present Illness Chief Complaint: Chest Pain Narrative Narrative: Patient presenting today due to chest pain that started around 12 PM. She reports that she has midsternal achy intermittent chest pain that radiates under her right breast. No cardiac history. She reports that she has had 3 siblings with coronary artery disease. She has had flulike symptoms over the past 2 days including fevers, chills, productive cough, body aches, nausea, headache, nasal congestion, and sore throat. She reports one episode of vomiting prior to arrival. She reports a history of, mild asthma. She denies any chronic medical conditions. She reports multiple people in her workplace have been sick with similar symptoms. She denies any shortness of breath, abdominal pain, and diarrhea. PE Risk Factors: Negative for Recent Travel/Surgery, Recent Immobilization, Prior DVT or PE, Cancer or OCP + Smoking + >/=35 PFSH <JEFF Alexander - Last Filed: 01/03/24 21:31> PFSH Medical History Anemia Back pain Breast cancer Fibrosis of liver GERD (gastroesophageal reflux disease) History of hiatal hernia History of IBS History of pain when walking History of stress test Hx of closed dislocation of finger Hypotension Leg cramps MRSA (methicillin resistant staph aureus) culture positive Non-smoker Personal history of breast cancer Restless legs Wears glasses Home Medications meclizine 25 mg tablet 25 mg PO Q8H PRN Dizziness #20 tabs 08/25/20 [Rx Last Taken Unknown] ondansetron 4 mg disintegrating tablet 8 mg (2 x 4 mg) PO Q8H PRN PRN Nausea #20 tabs 08/25/20 [Rx Last Taken Unknown] ondansetron 4 mg disintegrating tablet 4 mg PO Q8H PRN PRN Nausea #7 tabs 01/03/24 [Rx Last Taken Unknown] oseltamivir 75 mg capsule (Tamiflu) 75 mg PO BID 5 days #9 caps 01/03/24 [Rx Last Taken Unknown] Allergy/AdvReac Type Severity Reaction Status Date / Time minocycline Allergy Severe Shortness Verified 01/03/24 17:43 of breath Sulfa (Sulfonamide Allergy Severe Anaphylaxis Verified 01/03/24 17:43 Antibiotics) Environmental Allergies: Allergy Intermediate Rash Verified 01/03/24 17:43 Uncoded oxaprozin [From Daypro] AdvReac Intermediate Diarrhea Verified 01/03/24 17:43 tamoxifen [Tamoxifen] AdvReac Intermediate Nausea/Vom/ Verified 01/03/24 17:43 Diarrhea venlafaxine AdvReac Intermediate Nausea Verified 01/03/24 17:43 adhesive AdvReac Mild Rash Verified 01/03/24 17:43 latex AdvReac Mild Rash Verified 01/03/24 17:43 hydrocodone [From Vicodin] AdvReac Nausea/Vom/ Verified 01/03/24 17:43 Diarrhea Family History Father CVA (cerebral vascular accident) Kidney disease Hypertension Hyperlipidemia Heart disease Skin cancer Mother Heart disease Hypertension CVA (cerebral vascular accident) Breast cancer Other Alcoholism Anemia Anesthesia complication Asthma Diabetes Melanoma Surgical History H/O hernia repair H/O tubal ligation History of breast reconstruction History of esophagogastroduodenoscopy (EGD) History of mastectomy Hx of bladder repair surgery Hx of colonoscopy Hx of hysterectomy, total Hx of ventral hernia repair Social History Smoking Status: Never smoker alcohol intake: never substance use type: does not use additional social history: Does Not Take Aspirin Does Take Ibuprofen As Needed ROS <JEFF Alexander - Last Filed: 01/03/24 21:31> ROS ED Constitutional Constitutional ED: Reports chills, fever(s) and subjective Cardiovascular Cardiovascular: Reports chest pain; Denies palpitations Respiratory/Chest Respiratory/Chest: Reports cough; Denies dyspnea or tachypnea Gastrointestinal Gastrointestinal: Reports nausea and vomiting; Denies abdominal pain, constipation or diarrhea Genitourinary Genitourinary ED: Denies dysuria, hematuria or urinary urgency Musculoskeletal Musculoskeletal: Reports other Details: Body aches Integumentary Denies rash Neurologic Neurologic: Reports headache(s); Denies weakness EXAM <JEFF Alexander - Last Filed: 01/03/24 21:31> Physical Exam Const Vital Signs: 01/03/24 17:44 01/03/24 18:35 01/03/24 19:14 Temperature 98.7 F Temperature Source Temporal Pulse Rate 95 85 86 Respiratory Rate 22 H 16 16 Blood Pressure 93/55 L 108/69 121/72 H Blood Pressure Mean 67 82 88 Pulse Ox 95 94 93 Oxygen Delivery Method Room Air Room Air Room Air 01/03/24 17:51 01/03/24 21:03 Temperature Temperature Source Pulse Rate 87 Respiratory Rate 16 Blood Pressure 116/72 Blood Pressure Mean 86 Pulse Ox 92 93 Oxygen Delivery Method Room Air Room Air Positive well nourished, well developed and no apparent distress General Appearance ED: well developed HEENT Reports normocephalic, head/scalp atraumatic and TM's clear HEENT Narrative: Posterior pharynx clear, no tonsillar exudate, uvula midline Tympanic Membrane ED: Yes TM's clear Mouth ED: Yes moist mucous membranes normal Eyes PERRL and EOMs intact bilaterally Neck full ROM and supple Neck Narrative: No meningeal signs Chest Wall inspection of chest normal Resp normal respiratory effort and clear to auscultation bilaterally Cardio regular rate and regular rhythm GI soft to palpation, non-tender, non-distended and no masses Back/Spine normal ROM and normal to inspection Extremity normal to inspection and full ROM Neuro oriented x3, CN's II-XII intact bilaterally, moves all extremities, no focal motor deficits and no sensory deficits noted Sensorium / Orientation: awake and alert Psych mental status grossly normal and thought process normal Skin no rashes or lesions noted and no wounds <Dr. Alexis Ratliff MD - Last Filed: 01/03/24 20:15> Physical Exam Const Vital Signs: 01/03/24 17:44 01/03/24 18:35 01/03/24 19:14 Temperature 98.7 F Temperature Source Temporal Pulse Rate 95 85 86 Respiratory Rate 22 H 16 16 Blood Pressure 93/55 L 108/69 121/72 H Blood Pressure Mean 67 82 88 Pulse Ox 95 94 93 Oxygen Delivery Method Room Air Room Air Room Air 01/03/24 17:51 01/03/24 21:03 Temperature Temperature Source Pulse Rate 87 Respiratory Rate 16 Blood Pressure 116/72 Blood Pressure Mean 86 Pulse Ox 92 93 Oxygen Delivery Method Room Air Room Air MDM <JEFF Alexander - Last Filed: 01/03/24 21:31> MDM MDM Narrative Medical decision making narrative: Patient presenting today due to chest pain and flulike symptoms. Flulike symptoms started 2 days ago, her chest pain started around noon and is intermittent aching in nature. Her pain is nonexertional. Coughing does not seem to make the pain worse. She reports concerns due to 3 of her siblings having CAD. Cardiac workup will be obtained. She was given IV fluids and analgesia. I do suspect that she has a viral illness, influenza, RSV, and COVID swab will be obtained. Patient does have influenza A, nonsignificant delta troponin. She is within the ready for Tamiflu and would like to have this treatment. Chest x-ray suggests infiltrates, do not feel that antibiotics are indicated at this time. Supportive care measures have been discussed and she wi ll be discharged home in stable condition. She is comfortable with plan. Lab Data Attestation: I reviewed the patient's lab results. Lab results narrative: H&H 11.3 and 34.1, initial troponin 5 Labs: Laboratory Results - last 24 hr 01/03/24 01/03/24 18:25 20:40 WBC 9.4 RBC 3.83 L Hgb 11.3 L Hct 34.1 L MCV 89.0 MCH 29.5 MCHC 33.1 RDW Std Deviation 40.2 RDW Coeff of Yi 12.3 Plt Count 203 MPV 10.9 Immature Gran % (Auto) 0.200 Neut % (Auto) 82.2 H Lymph % (Auto) 13.0 L [place] % (Auto) 4.2 Eos % (Auto) 0.2 Baso % (Auto) 0.2 Absolute Neuts (auto) 7.7 Absolute Lymphs (auto) 1.22 Nucleated RBC % 0 Sodium 139 Potassium 3.8 Chloride 108 H Carbon Dioxide 25.0 Anion Gap 6 BUN 14 Creatinine 0.78 Estim Creat Clear Calc 74.94 Est GFR (MDRD) Af Amer 98 Est GFR (MDRD) Non-Af 81 BUN/Creatinine Ratio 18.0 Glucose 115 H Calcium 9.3 Troponin I High Sens 5 5 Radiography X-Ray: Read by ED Physician Diagnostic Testing: Clinical Impression(s) from Imaging Studies Chest X-Ray 01/03/24 18:03 IMPRESSION: Multiple lobe infiltrate. Electronically Signed: Milo Gutierrez MD at 18:45 EDT , EKG Initial EKG: Comments: 90 bpm, normal sinus rhythm, no ST elevation, interpreted by attending ED physician <Dr. Alexis Ratliff MD - Last Filed: 01/03/24 20:15> [facility] Lab Data Labs: Laboratory Results - last 24 hr 01/03/24 01/03/24 18:25 20:40 WBC 9.4 RBC 3.83 L Hgb 11.3 L Hct 34.1 L MCV 89.0 MCH 29.5 MCHC 33.1 RDW Std Deviation 40.2 RDW Coeff of Yi 12.3 Plt Count 203 MPV 10.9 Immature Gran % (Auto) 0.200 Neut % (Auto) 82.2 H Lymph % (Auto) 13.0 L Huntington % (Auto) 4.2 Eos % (Auto) 0.2 Baso % (Auto) 0.2 Absolute Neuts (auto) 7.7 Absolute Lymphs (auto) 1.22 Nucleated RBC % 0 Sodium 139 Potassium 3.8 Chloride 108 H Carbon Dioxide 25.0 Anion Gap 6 BUN 14 Creatinine 0.78 Estim Creat Clear Calc 74.94 Est GFR (MDRD) Af Amer 98 Est GFR (MDRD) Non-Af 81 BUN/Creatinine Ratio 18.0 Glucose 115 H Calcium 9.3 Troponin I High Sens 5 5 Radiography Diagnostic Testing: Clinical Impression(s) from Imaging Studies Chest X-Ray 01/03/24 18:03 IMPRESSION: Multiple lobe infiltrate. Electronically Signed: Milo Gutierrez MD at 18:45 EDT , Treatment and Re-Evaluation Comments:: I have personally performed a face to face assessment of the patient and have reviewed the CYNDI Note. I performed a substantive portion of the visit including all aspects of the following. My scanlon findings include: History is flulike symptoms for the past 48 hours or so. She has had cough, body aches, headaches, subjective fevers and chills, congestion, some diarrhea and nausea with 1 episode of vomiting. No abdominal pain. She had an hour or so long episode of right-sided possibly pleuritic chest discomfort earlier today that resolved. She states she was short of breath with it. Exam is lungs clear to auscultation throughout, heart regular no tachycardia no murmur. A&O x 3, no signs of meningitis. No cervical lymphadenopathy. Medical Decison Making sounds less likely to be cardiac, possibly esophageal. GI cocktail given. This relieved her pain that she had residual. Also did a chest x-ray which shows some atelectasis versus pneumonia in the right lower lobe, one-view portable on my interpretation, and influenza is positive for influenza A. We are doing a 2-hour delta troponin if negative she can be discharged home she is not hypoxic and doing well, will prescribe her Tamiflu she did have her flu shot. We will cover her for influenza pneumonia but I do not think she needs antibiotics. Other additions or changes: [None] Discharge Plan Triage Chief Complaint: Chest Pain ED Midlevel Provider: Lamar Duckworth ED Provider: Alexis Ratliff Dx/Rx/DC Orders Clinical Impression: Influenza A, Chest pain Instructions: ED Chest Pain, Uncertain Cause, ED Influenza (Adult) Prescriptions: New oseltamivir [Tamiflu] 75 mg capsule 75 mg PO BID 5 Days Qty: 9 0RF ondansetron 4 mg tablet,disintegrating 4 mg PO Q8H PRN PRN (Reason: Nausea) Qty: 7 0RF No Action ondansetron 4 MG tablet 8 mg PO Q8H PRN PRN (Reason: Nausea) Qty: 20 0RF meclizine 25 MG tablet 25 mg PO Q8H PRN (Reason: Dizziness) Qty: 20 0RF Stand Alone Forms: ED Work / School Excuse Primary Care Provider: Oma Palacio NP Referrals: Oma Palacio NP, SUPER[employer] [Primary Care Provider] - Activity Restrictions/Additional Instructions: Follow-up with your PCP and return for any worsening of your symptoms. Stay well-hydrated and alternate Tylenol and ibuprofen for fevers as needed. Disposition Disposition: Home, Self Care
[2024-01-03 18:49] LABS: Anion Gap 6 (5-15); BUN 14 mg/dL (7-18); Calcium,Total 9.3 mg/dL (8.5-10.1); Chloride 108 mmol/L (98-107); Creatinine, Serum 0.78 mg/dL (0.55-1.02); EST Glomerular Filtration Rate 81 mL/min (>60); Est Glom Filt Rate - Afr Amer 98 mL/min (>60); Estimated Creatinine Clearance 74.94 ml/min; Glucose 115 mg/dL (74-106); Potassium 3.8 mmol/L (3.5-5.1); Sodium Level 139 mmol/L (136-145); Troponin-I HS (w/2H Reflex) 5 pg/mL (3.0-54.0)
[2024-01-03] MEDS: Ketorolac 15 MG/ML Vial IV (18:52)
[2024-01-03] MEDS: Ondansetron 4 MG/2 ML Vial IV (18:52)
[2024-01-03] MEDS: 0.9% Normal Saline (1000mL) 1,000 ML 999 ML IV (18:53)
[2024-01-03] MEDS: Mag Hydrox/Al Hydrox/Simeth 30 ML UDC PO (19:13)
[2024-01-03 19:14] VITALS: BP 121/72; PULSE 86; RESP 16; O2SAT 93
[2024-01-03 20:27] LABS: Reflex Troponin-HS? (from REC) Y
[2024-01-03] MEDS: Oseltamivir Phosphate 75 MG Capsule PO (21:01)
[2024-01-03 21:03] VITALS: BP 116/72; PULSE 87; RESP 16; O2SAT 93
[2024-01-03 21:11] LABS: Troponin-I HS 5 pg/mL (3.0-54.0)
[2024-01-03 21:30] VITALS: BP 114/69; PULSE 83; RESP 25; TEMP 37.1; O2SAT 92
== END 2024-01-03 21:34 | disposition home or self-care (01) ==
PROVIDERS: Emergency Provider Emergency Medicine; PCP Nurse Practitioner Primary Care; Visit Provider Emergency Medicine
DX: J10.1 Influenza due to other identified influenza virus with other respiratory manifestations (principal); R07.9 Chest pain, unspecified; Z98.51 Tubal ligation status; Z90.10 Acquired absence of unspecified breast and nipple; Z90.710 Acquired absence of both cervix and uterus
CPT/HCPCS: 71045; 80048; 84484; 85025; 87631; 93005; 96361; 96374; 96375; 99283; J7030; A4216; J2405

== ENCOUNTER 2024-02-12 06:28 | Day surgery (SDC) | payer BC, SELFPAY ==
--- NOTE | 2024-02-11 14:17 | PCM.HP.BLA ---
History and Physical Date of Admission: 02/12/24 HISTORY OF PRESENT ILLNESS This is a 58-year-old woman with a history of breast cancer with subsequent TRAM flap reconstruction in 2008 and subsequent placement of cohesive gel implants, 480 ml Ultra High Profile on the left and 430 ml Ultra High Profile on the right, presents today because her nipple reconstruction tattooing has faded since it was done in April,. She denies fever. She denies trauma especially at work. In the past she would lift 50-100 lbs several times per day which would hit her implants several times per day. This has led to revisions of her breast reconstruction because of asymmetry and pain. She states she is in a different area and very seldom lifts anything more than 40-50 lbs. The main thing that bothers her besides the nipple tattooing fading is the right lateral TRAM flap donor incision. There is pain when she bumps it. She likes the rest of her TRAM flap donor incision. There is excess TRAM flap donor incision scar contour deformity.She is very happy with the breast reconstruction as there is good shape and contour and symmetrical. She is not self conscious when out in public because of the breast symmetry. She presents at this time for further evaluation and treatment. PAST MEDICAL HISTORY Anemia Apnea Atelectasis GERD (gastroesophageal reflux disease) Hernia Hypotension Kidney stones MRSA (methicillin resistant staph aureus) culture positive Persistent headaches Personal history of breast cancer UTI (urinary tract infection) PAST SURGICAL HISTORY H/O hernia repair H/O tubal ligation History of breast reconstruction History of mastectomy Tubal ligation. D and C, and a perineal repair. September 2009 - bilateral mastectomies and immediate reconstruction with bilateral TRAM flaps. March 2010 - bilateral breast reconstruction with placement of submuscular cohesive gel implants and bilateral nipple-areolar complex reconstruction (275 mL implants bilaterally). July 2010 - bilateral nipple reconstruction with intradermal tattooing. September 2010 - repair of right abdominal wall TRAM flap ventral hernia with acellular dermal matrix graft. September 2010 - hysterectomy and bilateral salpingo-oophorectomy. September 2011 - revision of right breast reconstruction with multiple capsulotomies and lateral capsular advancement flap and placement of acellular dermal matrix graft and revision of asymmetric inframammary fold with internal capsular plication and removal of cohesive gel implant with replacement implant (325 mL) and revision of left breast reconstruction with multiple capsulotomies and lateral capsular advancement flap and removal of cohesive gel implant with replacement implant (325 mL implant) and bilateral nipple reconstruction with intradermal tattooing. April 2013 - bilateral nipple reconstruction with intradermal tattooing. September 2013 - repair of recurrent right abdominal wall TRAM flap ventral hernia with acellular dermal matrix graft. 03/22/15 - Repair recurrent right abdominal wall TRAM flap ventral hernia with placement of Strattice acellular dermal matrix graft (160 cm2) and excisional debridement chronic seroma capsule right abdominal wall. 07/10/16 - Revision left breast reconstruction with capsulectomy and removal cohesive gel implant and placement of Alloderm acellular dermal matrix graft inferolateral sling (132 cm2) and with replacement cohesive gel implant (480 ml) and revision right breast reconstruction with capsulectomy and removal cohesive gel implant and placement Alloderm acellular dermal matrix graft inferolateral sling (132 cm2) and with replacement cohesive gel implant (430 ml). ALLERGIES minocycline Sulfa (Sulfonamide Antibiotics) Environmental oxaprozin [From Daypro] tamoxifen [Tamoxifen] venlafaxine adhesive latex hydrocodone [From Vicodin] MEDICATIONS Meclizine Ondansetron FAMILY HISTORY Father CVA (cerebral vascular accident) Kidney disease Hypertension Hyperlipidemia Heart disease Skin cancer Mother Heart disease Hypertension CVA (cerebral vascular accident) Breast cancer Other Alcoholism Anemia Anesthesia complication Asthma Diabetes Melanoma SOCIAL HISTORY Smoking Status: Never smoker alcohol intake: never substance use type: does not use REVIEW OF SYSTEMS GENERAL: Denies fever and fatigue. Had 20 lb weight loss in past year. EYES: Denies eye pain. ENT: Complains of decreased hearing. Denies nasal congestion and sore throat. CARDIOVASCULAR: Denies chest pain, fatigue, lightheadedness and shortness of breath with exertion. RESPIRATORY: Denies cough and shortness of breath. GASTROINTESTINAL: Denies nausea, vomiting, diarrhea or constipation. GENITOURINARY: Denies hematuria and urinary frequency. Had tubal ligation and perineal repair. Had hysterectomy and bilateral salpingo-oophorectomy. MUSCULOSKELETAL: Complains of back pain and stiffness. Denies joint pain, muscle weakness and arthritis. Has lumbar back pain. INTEGUMENTARY: Denies suspicious lesions and skin cancer. NEUROLOGIC: Denies poor balance, headaches and weakness. Had brachial plexopathy in left arm and after breast reconstruction surgery in September 2009 that required OT for range of motion exercise and strengthening that resolved. PSYCHOLOGIC: Denies anxiety and depression. ENDOCRINE: Denies excessive thirst and urination. Had left breast cancer with mastectomy, had right prophylactic mastectomy. Had bilateral breast reconstruction with bilateral TRAM flaps and subsequent cohesive gel implants, has disproportion of reconstructed left breast with asymmetry, has capsular deformity superomedial right breast and inferolateral left breast reconstruction. HEMATOLOGIC: Denies abnormal bruising and fevers. Has anemia. PHYSICAL EXAMINATION HEENT: Pupils equal, round and reactive to light. Extraocular muscles intact. Throat is clear. NECK: Supple. Nontender. No cervical adenopathy. BREASTS EXAM: Breast incisions are healed. Breasts are soft and symmetrical. Good breast reconstruction contour noted. No breast mass is palpable. No axillary adenopathy. Areolar coloration has faded. The nipple blends into the breast as there is no more color differentiation. LUNGS: Clear to auscultation. HEART: Regular rate and rhythm. ABDOMEN: Soft and nondistended. Normal bowel sounds. No hepatosplenomegaly. No clinical evidence of recurrent incisional hernia. In the right lateral TRAM flap donor incision is excess tissue scar contour deformity. Mild discomfort when she bumps it. EXTREMITIES: Pulses normal in all 4 extremities. No clubbing, cyanosis or edema. She has full range of motion. No axillary adenopathy. No inguinal adenopathy. She has excessive and redundant skin and subcutaneous tissue in her proximal arms after her recent weight loss of 20 lbs in the past year. NEUROLOGIC EXAM: Cranial nerves II-XII grossly intact. IMPRESSION 1. Left breast cancer with mastectomy in 2008. 2. Prophylactic right breast removal in 2008. 3. Acquired absence bilateral breasts and nipples. 4. History of bilateral breast reconstruction with bilateral TRAM flaps in 2008. 5. History of revision bilateral breast reconstruction with placement of cohesive gel implants most recently in 2015.. 6. History of bilateral nipple reconstruction with intradermal tattooing in 2012. 7. History of MRSA. 8. Painful excess right lateral TRAM flap donor incision scar contour deformity. 9. Family history of breast cancer. PLAN Patient had nipple reconstruction with intradermal tattooing in April,. The coloration faded over 10 years. Recommend nipple reconstruction with intradermal tattooing. She was happy with intradermal tattooing and wants to use the same coloration. She is bothered by excess TRAM flap donor incision when bumped. That excess TRAM flap donor incision scar contour deformity can be revised at the same time as the nipple tattooing. Surgery can be done on an outpatient basis under local anesthesia and IV sedation. The patient was informed of the risks and complications of the procedure including alternatives of surgery. These were discussed with her personally. She voices understanding and wished to proceed. Some of the risks and complications were included in a form from the [place] [employer]. Potential risks and complications included but not inclusive of bleeding, infection, seroma, hematoma, bruising, swelling, prolonged need for drains, loss of sensation to skin, wound breakdown, need for wound care, poor scarring, poor aesthetic outcome, intra operative cardiac or neurologic events, DVT, PE, and reaction to anesthesia. Assessment & Plan Assessment/Plan (1) Personal history of breast cancer: (2) Prophylactic breast removal: (3) History of bilateral breast implants: (4) Deformity of reconstructed breast: (5) Family history of breast cancer: (6) Personal history of Methicillin resistant Staphylococcus aureus infection:
[2024-02-12] VITALS (15 sets, daily range): BP systolic 88–137; BP diastolic 54–78; PULSE 64–96; RESP 16; TEMP 36.1–36.3; O2SAT 93–98; BMI 26.6
--- NOTE | 2024-02-12 | BRBX_PTH ---
PATIENT: STELLA MORALES [place] [facility] [facility] [id number] AGE/SX: 58/F ROOM: RE02/12/[address]: Dr. Adam Argueta MD : 1965 BED: DIS: 02/12/2024 SPEC #: [id number] RECD: 02/12/24 14:59 STATUS: LICO HAI #: [id number] JEROME: 02/12/24 00:[address]: Adam Argueta DEPT: SURGICAL PATHOLOGY RECD BY: Sandra Plascencia ENTERED: 02/13/24 09:10 SP TYPE: BREAST BX OTHR DR: Oma Palacio, [employer]-C Tissues: A - Skin, NOS Right breast, NOS Procedures: Surgery Specimen Level III Surgery Specimen Level IV HEADER OPERATION: ERAS, revision right nipple reconstruction PRE-OP DIAGNOSIS: Personal history of breast cancer, prophylactic breast removal, history of bilateral breast implants, deformity of reconstructed breast, family history of breast cancer, personal history of methicillin resistant staphylococcus aureus infection TISSUE SUBMITTED: A- Tram flap doner site, B- Right breast tissue MICROSCOPIC DIAGNOSIS A. Tram flap, doner site, excision: Skin and underlying dermal and fibrofatty tissue with no pathologic change. B. Right breast tissue, excision: Skin and underlying dermis and pigment incontinence and mild fibrosis. / 02/14/24 MICROSCOPIC DESCRIPTION Slides are reviewed. GROSS DESCRIPTION A. Received in fixative is one container labeled with the patient's name and designated Tram flap doner site. The specimen consists of ellipse of light castelan skin with attached yellow fatty tissue. The specimen measures 8.0 x 2.2 and a depth of excision measuring 1.2cm. No cutaneous lesions are identified. Serial sections do not reveal mass lesions. Enrollment Representative sections are submitted in four cassettes. B. Received in fixative is one container labeled with the patient's name and designated Right breast tissue. The specimen consists of an elongated fragment of castelan skin measuring 6.5cm in length and 0.5cm in width. Minimal amount of fatty tissue is adherent to the skin. No mass lesions are identified. The specimen is sectioned and totally submitted in one cassette. / 02/13/24 TC:5 CPT: 71939w1
[2024-02-12] MEDS: Lactated Ringers 1,000 ML 40 ML IV (06:52)
[2024-02-12] MEDS: Acetaminophen 500 MG Tablet 1000 MG PO (06:52)
[2024-02-12] MEDS: Gabapentin 600 MG Tablet PO (06:52)
[2024-02-12] MEDS: Scopolamine 1mg/72hr Patch 1 PATCH TD (06:53)
[2024-02-12 07:06] LABS: Magnesium 2.1 mg/dL (1.6-2.6)
[2024-02-12] MEDS: Magnesium 1 GM over 15 mins IV (07:28)
[2024-02-12] MEDS: Mupirocin Ointment 22gm Tube 1 APPLIC (07:59)
[2024-02-12] MEDS: Cefazolin 2 GM in 0.9% Normal Saline (100mL Bag) 100 ML IV (08:42)
[2024-02-12] MEDS: Lidocaine 1% /Epi 1:100 (50ml) 50 ML VIAL (10:30)
[2024-02-12] MEDS: Lactated Ringers 1,000 ML 60 ML IV (11:27)
--- NOTE | 2024-02-12 12:16 | DCINST_ITS ---
Discharge Instructions Diet Discharge Diet: No restrictions Activity Discharge Activity: May Not Drive (until seen in the office), May Shower (in two days. No bathing.) and - (keep head elevated. no heavy lifting.) May shower in (days): 2 May resume sexual activity in: 10-14 days Weight Bearing Status: Weight bearing as tolerated Lifting Restrictions: 20 lbs. Keep extremity elevated above heart level: - (elevate head) Dressing / Incision Call your doctor if your incision/area has: Continuous Slow Oozing, Sudden Increased Bleeding, Increased Pain/ Swelling, Increased Redness, Foul Smelling Discharge and Swelling at the incision site Call your doctor if you observe: Fever of 101 or Higher, Coldness, Increased Pain, Shortness of breath, Chest pain, Calf discomfort and Uncontrolled pain Change Dressing in: 2 days (then place new dressing on after showering.) Cleanse incision/area with: Soap & Water (may get incisions wet in the shower in 2 days) Additional Dressing/Incision Instructions:: can use 4x4 gauze over the incisions. On the left nipple, there was a small area of tattooing. Place antibiotic ointment over that area followed by xeroform gauze. Follow Up Care Please Follow Up With: Adam Argueta MD When: one week. call [phone] for appt. Test Results: Test results from this visit will be discussed in further detail at your follow- up appointment, if applicable. Discharge Plan Admission Primary Reason for Your Visit: bilateral breast reconstruction with nipple tattooing Attending Provider: Adam Argueta Primary Care Provider: Oma Palacio NP Discharge Orders/Prescriptions Prescriptions: New cefadroxil 500 mg capsule 500 mg PO BID Qty: 10 0RF L.acidoph,saliva-B.bif-S.therm [Acidophilus Probiotic Blend] 175 mg capsule 1 cap PO DAILY Qty: 20 0RF oxycodone-acetaminophen [Percocet] 5-325 mg tablet 1 tab PO Q6H PRN (Reason: pain (scale score 7-10)) 5 Days Qty: 20 0RF Rx Instructions: 20 tabs (twenty) Continued meclizine 25 MG tablet 25 mg PO Q8H PRN (Reason: Dizziness) Qty: 20 0RF ondansetron 4 mg tablet,disintegrating 4 mg PO Q8H PRN PRN (Reason: Nausea) Qty: 7 0RF Referrals / Follow Up: Adam Argueta MD [Med Staff - Active Staff] - In 1 Week Oma Palacio NP, [employer]IST-C [Primary Care Provider] - Disposition Disposition (needs filled in before D/C Order can be placed): Home, Self Care
--- NOTE | 2024-02-12 12:16 | OP.PCM_ITS ---
Problems Associated Problem List Diagnoses (1) History of left breast cancer: (2) Prophylactic breast removal: (3) Acquired absence of bilateral breasts and nipples: (4) History of reconstruction of both breasts: (5) History of bilateral breast implants: (6) Deformity of reconstructed breast: (7) Personal history of Methicillin resistant Staphylococcus aureus infection: (8) Family history of breast cancer: Report of Operation Date of Procedure: 02/12/24 Pre-Operative Diagnosis: 1. Left breast cancer with mastectomy in 2008. 2. Prophylactic right breast removal in 2008. 3. Acquired absence bilateral breasts and nipples. 4. History of bilateral breast reconstruction with bilateral TRAM flaps in 2008. 5. History of revision bilateral breast reconstruction with placement of cohesive gel implants most recently in 2015.. 6. History of bilateral nipple reconstruction with intradermal tattooing in 2012. 7. Deformity reconstructed right breast with some lateral migration of the nipple. 8. History of MRSA. 9. Painful excess right lateral TRAM flap donor incision scar contour deformity. 10. Family history of breast cancer. Post-Operative Diagnosis: Same. Surgery/Procedure Performed:: 1. Attempted bilateral nipple reconstruction with intradermal tattooing, but had to stop the procedure early on because of mechanical difficulties with the machine. 2. Excision painful right TRAM flap donor scar contour deformity with 9 cm complex closure. 3. Revision reconstructed right breast with crescenteric excision medial periareolar skin with medial advancement of the nipple areolar complex. Description of Surgical Findings:: This is a 58-year-old woman with a history of breast cancer with subsequent TRAM flap reconstruction in 2008 and subsequent placement of cohesive gel implants, 480 ml Ultra High Profile on the left and 430 ml Ultra High Profile on the right, presents today because her nipple reconstruction tattooing has faded since it was done in April,. She denies fever. She denies trauma especially at work. In the past she would lift 50-100 lbs several times per day which would hit her implants several times per day. This has led to revisions of her breast reconstruction because of asymmetry and pain. She states she is in a different area and very seldom lifts anything more than 40-50 lbs. The main thing that bothers her besides the nipple tattooing fading is the right lateral TRAM flap donor incision. There is pain when she bumps it. She likes the rest of her TRAM flap donor incision. There is excess TRAM flap donor incision scar contour deformity.She is very happy with the breast reconstruction as there is good shape and contour and symmetrical. She is not self conscious when out in public because of the breast symmetry. She presents at this time for further evaluation and treatment. The tattooing machine had mechanical problems today. Will reschedule the intradermal tattooing. Surgeon: Adam Argueta MD assistance representative: Beni Hunt RNFA Type of Anesthesia: General Anesthesiologist: Lorenzo Lawton MD and Renee Zhang CRNA Specimen's removed: 1. Right TRAM flap donor scar contour deformity to Pathology. 2. Right breast tissue to Pathology. Drains: None. Estimated Blood Loss (mL): 20. Description of Procedure: Patient was taken to OR in supine position and was placed under general anesthesia. The breasts and right TRAM flap donor scar contour deformity were prepped and draped in the usual fashion. SCD's were placed for DVT prophylaxis. Perioperative antibiotics were given intravenously. Using xylocaine with epinephrine, the nipple areolar complexes and right TRAM flap donor scar contour deformity were infiltrated. After waiting 5 minutes for the anesthetic to take effect, I made an oblique elliptical incision on the right TRAM flap donor scar contour deformity down into the subcutaneous tissue and through Rufino's fascia to the abdominal wall. There was some adherent scar on the abdominal wall that was excised. The specimen was sent to Pathology for analysis to rule out carcinoma. The wound was irrigated with Irrisept 0.05% Chlorhexidine and followed with saline irrigation. Hemostasis was obtained with electrocautery. The wound was closed in a multilayered complex fashion with 3-0 Monocryl figure of eight sutures for the Rufino's fascial layer. 3-0 Monocryl interrupted sutures were used for the deep dermis and subcutaneous tissue. The skin was approximated with 3-0 Stratafix unidirectional barbed running subcuticular suture. This was followed with Histoacryl skin tissue adhesive. I started the intradermal tattooing on the left breast. I covered the nipple areolar complex with antibiotic ointment. We started with size 14 needle for the areolar complex and will use size 9 needle for the nipple area. We will used Fleshtone pigment #5 for the areolar complex and pigment #7 for the nipple area. The tattooing machine was set up and we started on the inferior aspect of the areolar complex. I made a couple of passes and there was some dermal penetration of some of the pigment. Then I couldn't continue because the machine stopped functioning. We called the company and the problem could not be solved over the phone. They said they would send another machine overnight. So the tattooing was cancelled. When the patient was sitting up preoperatively, i noted that the right nipple was off center with slight lateral migration. I made crescenteric markings on the medial aspect of the areolar complex on the right. The width was 1.5 cm. I made a crescenteric incision into the subcutaneous tissue. Hemostasis was obtained with electrocautery. I sprayed more Irrisept 0.05% Chlorhexadine into the wound and followed with saline irrigation. The breast tissue was sent to Pathology for analysis to rule out carcinoma. I then advanced the nipple areolar complex medially to improve the location of the nipple and make it more centric. The deep dermis and subcutaneous tissue was approximated with 3-0 Monocryl interrupted sutures. The skin was approximated with 3-0 Nylon running subcuticular suture. The ends were tied together and will be cut in 2 weeks. I went with a permanent suture to minimize risk of scar widening. This was then followed with Histoacryl skin tissue adhesive. Xeroform gauze was placed on small area of pigmentation that was done before the mechanical malfunction. Antibiotic ointment was placed over the Xeroform gauze. This was followed with 4x4 gauze and dry Kerlix gauze over both breasts and the right lateral abdominal wall. Patient tolerated the procedure well and was sent to PACU in satisfactory condition. Patient will be sent home on antibiotics and pain medication. Patient will followup in a week for a wound check and for discussion of the pathology report. The ends of the nylon suture will be cut in 2 weeks. Once the mechanical malfunction has been corrected with a new machine, we will reschedule her bilateral nipple reconstruction with intradermal tattooing. She will keep her head elevated during the initial postoperative period. She will be on a 20 lb lifting restriction for a couple of weeks (tentative). Grafts/Implants Used: None. Procedure Start Time: 09:04 Procedure Stop Time: 11:11 Complications None. Admit VTE Documentation VTE Present on Admission: No VTE Mechan Device Prophylaxis: SCD's VTE Pharm Prophylaxis ordered?: No Addendum Addendum: Surgery Charges CPT - 74377 ICD-10 - Z85.3, Z40.012, Z90.13, Z98.890, Z98.82, N65.0, Z86.14, Z80.3
== END 2024-02-12 14:48 | disposition home or self-care (01) ==
LOC: SDC 06:30 → AC 06:31
PROVIDERS: Anesthesiology; PCP Nurse Practitioner Primary Care; Referring Provider Surgery; Visit Provider Surgery
PROC: (CPT 19380; principal; 2024-02-12 08:15)
DX: N65.0 Deformity of reconstructed breast (principal); N64.4 Mastodynia; Z90.13 Acquired absence of bilateral breasts and nipples; Z85.3 Personal history of malignant neoplasm of breast; Z86.14 Personal history of Methicillin resistant Staphylococcus aureus infection; Z80.3 Family history of malignant neoplasm of breast; Z87.19 Personal history of other diseases of the digestive system; Z98.51 Tubal ligation status; K00.0 Anodontia
CPT/HCPCS: 19380; 00402; 83735; 88304; 88305; J7120; J2405; J3475

== ENCOUNTER 2024-02-19 09:12 | Day surgery (SDC) | payer BC, SELFPAY ==
[2024-02-19 09:34] VITALS: BP 126/70; PULSE 65; RESP 16; TEMP 36.1; O2SAT 98; BMI 26.4
[2024-02-19] MEDS: Lactated Ringers 1,000 ML 15 ML IV (09:50)
--- NOTE | 2024-02-19 11:27 | NURSING ---
up to bathroom back to bed
[2024-02-19] MEDS: Cefazolin 2 GM in 0.9% Normal Saline (100mL Bag) 100 ML IV (14:17)
[2024-02-19] MEDS: Mupirocin Ointment 22gm Tube 1 APPLIC (14:33)
[2024-02-19] MEDS: Lidocaine 1% /Epi 1:100 (50ml) 50 ML VIAL (14:33)
--- NOTE | 2024-02-19 15:45 | OP.PCM_ITS ---
Problems Associated Problem List Diagnoses (1) Personal history of breast cancer: (2) Prophylactic breast removal: (3) Acquired absence of bilateral breasts and nipples: (4) History of reconstruction of both breasts: (5) History of bilateral breast implants: (6) Personal history of Methicillin resistant Staphylococcus aureus infection: (7) Family history of breast cancer: Report of Operation Date of Procedure: 02/19/24 Pre-Operative Diagnosis: 1. Left breast cancer with mastectomy in 2008. 2. Prophylactic right breast removal in 2008. 3. Acquired absence bilateral breasts and nipples. 4. History of bilateral breast reconstruction with bilateral TRAM flaps in 2008. 5. History of revision bilateral breast reconstruction with placement of cohesive gel implants most recently in 2015.. 6. History of bilateral nipple reconstruction with intradermal tattooing in 2012. 7. History of MRSA. 8. Painful excess right lateral TRAM flap donor incision scar contour deformity. 9. Family history of breast cancer. Post-Operative Diagnosis: Same. Surgery/Procedure Performed:: Bilateral nipple reconstruction with intradermal tattooing (66.34 cm2). Description of Surgical Findings:: This is a 58-year-old woman with a history of breast cancer with subsequent TRAM flap reconstruction in 2008 and subsequent placement of cohesive gel implants, 480 ml Ultra High Profile on the left and 430 ml Ultra High Profile on the right, presents today because her nipple reconstruction tattooing has faded since it was done in April,. She denies fever. She denies trauma especially at work. In the past she would lift 50-100 lbs several times per day which would hit her implants several times per day. This has led to revisions of her breast reconstruction because of asymmetry and pain. She states she is in a different area and very seldom lifts anything more than 40-50 lbs. The main thing that bothers her besides the nipple tattooing fading is the right lateral TRAM flap donor incision. There is pain when she bumps it. She likes the rest of her TRAM flap donor incision. There is excess TRAM flap donor incision scar contour deformity.She is very happy with the breast reconstruction as there is good shape and contour and symmetrical. She is not self conscious when out in public because of the breast symmetry. She presents at this time for further evaluation and treatment. I used [employer] Tattoo Ink Flesh 7 for the nipples. Lot Number - [id number]. Catalog Number - [id number]. Expiration - February 10, 2025. I used [employer] Tattoo Ink Flesh 5 for the areolar complexes. Lot Number - [id number]. Catalog Number - [id number]. Expiration - February 10, 2025. Size of the nipple areolar complexes have a diameter of 6.5 cm. Surgeon: Adam Argueta MD senior integration developer: None Type of Anesthesia: Local MAC Anesthesiologist: Koko Ingram MD and Jeff Hamlin CRNA Specimen's removed: None. Drains: None. Estimated Blood Loss (mL): 1. Description of Procedure: Patient was taken to OR in supine position and was given IV sedation. The breasts were prepped and draped in the usual fashion. SCD's were placed for DVT prophylaxis. Perioperative antibiotics were given intravenously. The outer edges of the nipple areolar complexes were infiltrated with xylocaine and epinephrine. After waiting 5 minutes for the anesthetic to take effect, I started first on the left side and then went to the right side. I used separate needles and separate tattoo ink for each side. I placed antibiotic ointment on the nipple areolar complexes. I started with Flesh 5 for the areolar complexes using size 14 needles. I went in a radial direction. After each pass, I wiped off the excess ink. I made 4 passes until I saw some intradermal bleeding indicating good penetration of the ink. I then went to the nipple and used Flesh 7 using size 9 needles. I went in a radial direction. After each pass, I wiped off the excess ink. I made 4 passes until I saw some intradermal bleeding indicating good penetration of the ink. I then went to the right side. I placed antibiotic ointment on the nipple a reolar complexes.? I started with Flesh 5 for the areolar complexes using size 14 needles.? I went in a radial direction.? After each pass, I wiped off the excess ink.? ?I made 4 passes until I saw some intradermal bleeding indicating good penetration of the ink.? I then went to the nipple and used Flesh 7 using size 9 needles.? I went in a radial direction.? After each pass, I wiped off the excess ink.? I made 4 passes until I saw some intradermal bleeding indicating good penetration of the ink. At the termination of the procedure, I placed antibiotic ointment on both nipple areolar complexes followed by Xeroform gauze and 4x4 gauze. On the left side, the diameter was 6.5 cm. On the right side, it was a little smaller. So I extended the ink outside the previous scarring to make both nip ple areolar complexes have the same diameter. The area of the nipple areolar complexes are 33.17 cm2 for each side for a combined total of 66.34 cm2. Patient tolerated the procedure well and was sent to PACU in satisfactory condition. Patient will be sent home on antibiotics and pain medication. She will keep her head elevated during the initial postoperative period. She will be on a lifting restriction for one week. Patient will followup in 2 days for a dressing change and will instruct the patient on the dressing changes. Grafts/Implants Used: [employer] Tat[employer] Ink Flesh 7 and Flesh 5. Procedure Start Time: 14:33 Procedure Stop Time: 15:43 Complications None. Admit VTE Documentation VTE Present on Admission: No VTE Mechan Device Prophylaxis: SCD's VTE Pharm Prophylaxis ordered?: No Addendum Addendum: Surgery Charges CPT - 41107-96 ICD-10 - C50.912, Z40.01, Z90.13, Z98.890, Z98.82, Z86.14, Z80.3 00135 C50.912, Z40.01, Z90.13, Z98.890, Z98.82, Z86.14, Z80.3 11560 C50.912, Z40.01, Z90.13, Z98.890, Z98.82, Z86.14, Z80.3 87201 C50.912, Z40.01, Z90.13, Z98.890, Z98.82, Z86.14, Z80.3
--- NOTE | 2024-02-19 15:46 | PCM.DC ---
Discharge Instructions Diet Discharge Diet: No restrictions Activity Discharge Activity: [place] Drive (when not taking Percocet medication.) and - (no heavy lifting. keep head elevated) Return to work on:: 02/24/24 May resume sexual activity in: 10-14 days Weight Bearing Status: Weight bearing as tolerated Lifting Restrictions: 20 lbs. until Saturday02/24/24 Keep extremity elevated above heart level: - (elevate head) Dressing / Incision Call your doctor if your incision/area has: Continuous Slow Oozing, Sudden Increased Bleeding, Increased Pain/ Swelling, Increased Redness, Foul Smelling Discharge and Swelling at the incision site Call your doctor if you observe: Fever of 101 or Higher, Coldness, Increased Pain, Shortness of breath, Chest pain, Calf discomfort and Uncontrolled pain Change Dressing in: leave in place till F/U Remove Dressing in: leave in place till F/U (on saturday02/21/24.) Cleanse incision/area with: Keep Dressing Clean & Dry (until saturday. Then after a shower, replace gauze on the nipples along with antibiotic ointment.) and - (may shower on saturday02/24/24) Follow Up Care Please Follow Up With: Adam Argueta MD When: Saturday02/21/24. call [phone] for appt. Test Results: Test results from this visit will be discussed in further detail at your follow-up appointment, if applicable. Discharge Plan Admission Primary Reason for Your Visit: bilateral nipple reconstruction with intradermal tattooing. Attending Provider: Adam Argueta Primary Care Provider: Oma Palacio NP Discharge Orders/Prescriptions Prescriptions: New cefadroxil 500 mg capsule 500 mg PO BID Qty: 10 0RF Continued meclizine 25 MG tablet 25 mg PO Q8H PRN (Reason: Dizziness) Qty: 20 0RF ondansetron 4 mg tablet,disintegrating 4 mg PO Q8H PRN PRN (Reason: Nausea) Qty: 7 0RF oxycodone-acetaminophen [Percocet] 5-325 mg tablet 1 tab PO Q6H PRN (Reason: pain (scale score 7-10)) 5 Days Qty: 12 0RF Rx Instructions: 12 tabs (twelve) L.acidoph,saliva-B.bif-S.therm [Acidophilus Probiotic Blend] 175 mg capsule 1 cap PO DAILY Qty: 20 0RF Referrals / Follow Up: Adam Argueta MD [Med Staff - Active Staff] - Within 1 Week Oma Palacio NP, [employer]OL [employer]PERATOR [employer] [Primary Care Provider] - Disposition Disposition (needs filled in before D/C Order can be placed): Home, Self Care
[2024-02-19 15:50] VITALS: BP 126/70; PULSE 71; RESP 16; TEMP 36.1; O2SAT 94
[2024-02-19 15:55] VITALS: BP 116/76; BP 126/70; PULSE 67; RESP 18; O2SAT 95
[2024-02-19 16:00] VITALS: BP 119/78; BP 126/70; PULSE 61; RESP 16; O2SAT 95
[2024-02-19 16:05] VITALS: BP 113/63; BP 126/70; PULSE 56; RESP 18; TEMP 36.4; O2SAT 96
[2024-02-19 16:32] VITALS: BP 126/70
== END 2024-02-19 16:37 | disposition home or self-care (01) ==
LOC: SDC 09:12 → AC 09:13
PROVIDERS: PCP Nurse Practitioner Primary Care; Referring Provider Surgery; Visit Provider Surgery
PROC: 3E00XMZ Introduction of Pigment into Skin and Mucous Membranes, External Approach (ICD-10-PCS; CPT 11921; principal; 2024-02-19 10:45)
DX: L90.5 Scar conditions and fibrosis of skin (principal); Z90.13 Acquired absence of bilateral breasts and nipples; Z98.82 Breast implant status; Z86.14 Personal history of Methicillin resistant Staphylococcus aureus infection; Z80.3 Family history of malignant neoplasm of breast; Z85.3 Personal history of malignant neoplasm of breast; K43.2 Incisional hernia without obstruction or gangrene; M25.551 Pain in right hip; Z87.19 Personal history of other diseases of the digestive system; Z98.51 Tubal ligation status; Z90.710 Acquired absence of both cervix and uterus; K21.9 Gastro-esophageal reflux disease without esophagitis
CPT/HCPCS: 11921; 11922; J7120; J2405